=== PATIENT | female | born 1940 | race Caucasian/White ===

== ENCOUNTER 2022-06-12 19:16 | Emergency (ER) | payer MEDICARE, SELFPAY ==
[2022-06-12 19:33] VITALS: BP 156/65; PULSE 87; RESP 18; TEMP 36.8; O2SAT 96; BMI 36.1
[2022-06-12 19:38] VITALS: RESP 18; O2SAT 96
[2022-06-12 19:40] VITALS: BP 156/72
--- NOTE | 2022-06-12 19:56 | ED_ITS ---
HPI - General Adult General Chief complaint: Cough Stated complaint: Headache Body Pain Cough Time Seen by Provider: 06/12/22 19:31 History of Present Illness HPI narrative: 81-year-old woman presenting to the emergency department with complaint of headache and concerned it appears primarily of potential COVID infection. home covid test was negative. wants paxlovid if positive here today. Does have a history of hypertension rheumatoid arthritis. She woke this morning with a headache and has evolved a small dry cough. She is not having specifically chest pain nor shortness of breath. It does has some degree of achy all over which she would blame on underlying rheumatoid affected by what ever presumed illness she has now. Took some ibuprofen earlier today and to residual hydrocodone to get rid of the headache and it did not help. Does take methotrexate gabapentin hydrochlorothiazide tramadol She has not had any fever or rash. Scratchy throat. No diarrhea. She would like relief of this headache. Related Data Home Medications Medication Instructions Recorded Confirmed atorvastatin 40 mg tablet 40 mg PO DAILY 06/12/22 06/12/22 cholecalciferol (vitamin D3) 50 2,000 unit PO DAILY 06/12/22 06/12/22 mcg (2,000 unit) capsule (Vitamin D3) cyanocobalamin (vitamin B-12) 500 500 mcg PO DAILY 06/12/22 06/12/22 mcg tablet (Vitamin B-12) gabapentin 300 mg capsule 300 mg PO DIRECTED 06/12/22 06/12/22 hydroxychloroquine 200 mg tablet 200 mg PO BID 06/12/22 06/12/22 methotrexate sodium 25 mg/mL 25 mg subcut DIRECTED 06/12/22 06/12/22 injection solution sertraline 100 mg tablet 100 mg PO DAILY 06/12/22 06/12/22 tramadol 50 mg tablet 50 mg PO BID-TID PRN joint pain 06/12/22 06/12/22 Previous Rx's Medication Instructions Recorded nirmatrelvir 300 mg (150 mg See Rx Instructions PO .COMPLEX 06/12/22 x2)-ritonavir 100 mg tablet,dose #30 ea pack(EUA) (Paxlovid) Allergies Allergy/AdvReac Type Severity Reaction Status Date / Time albuterol Allergy Severe Anaphylaxis Verified 06/12/22 21:02 Review of Systems Status of ROS: Reports: 6 or more systems reviewed and unremarkable except as noted in History and below [facility] Medical History (Updated 06/12/22 @ 21:28 by Vineet Ivy MD) Anemia, iron deficiency Anxiety Bilateral lumbar radiculopathy Depression Epigastric pain GERD (gastroesophageal reflux disease) H. pylori infection Herpesviral vesicular dermatitis Hypercholesteremia Osteoporosis Rheumatoid arthritis Small bowel perforation Spinal stenosis Surgical History (Updated 06/12/22 @ 21:00 by Hood Elise RN) History of bilateral knee replacement History of blepharoplasty History of esophagogastroduodenoscopy (EGD) History of lumbar fusion History of Adrienne-en-Y gastric bypass History of shoulder surgery Intestinal bypass and anastomosis status S/P cataract extraction and insertion of intraocular lens Status post reverse total replacement of left shoulder Social History Smoking Status: Former smoker Do you use any of these nicotine containing products: None Second hand tobacco smoke exposure: No How often do you have a drink containing alcohol: never AUDIT-C Alcohol total score: 0 Non-prescribed substance use: denies use Exam Narrative: Exam Narrative: Pleasant. NAD. Mildly watering eyes left greater than right without conjunctival injection. Cranial nerves 2-12 intact. Well perfused moving all extremities without difficulty other than did not test her shoulder she has had bilateral shoulder surgery. Mild lower extremity dependent edema. Lungs are clear oropharynx faintly erythematous. Neck is supple without LA. heart is in a regular rate and rhythm. Const: Vital Signs, click to edit/add: Vital Signs - 24 hr 06/12/22 19:33 06/12/22 19:38 06/12/22 19:40 Temperature 98.2 F Pulse Rate [Right Pulse Oximeter] 87 Respiratory Rate 18 18 Blood Pressure [Ri ght Upper Arm] 156/65 H 156/72 H Pulse Oximetry 96 96 Oxygen Delivery Me thod Room Air Room Air 06/12/22 20:39 06/12/22 20:00 06/12/22 21:29 Temperature Pulse Rate [Right Pulse Oximeter] 78 79 Respiratory Rate 18 18 Blood Pressure [Ri ght Upper Arm] 173/84 H 175/70 H Pulse Oximetry 94 96 96 Oxygen Delivery Me thod Room Air Room Air Room Air Documenting provider has reviewed patient's vital signs: yes Course Vital Signs Vital signs: Initial Vital Signs Temperature 98.2 F 06/12/22 19:33 Temperature Source Temporal Artery Scan 06/12/22 19:33 Pulse Rate 87 06/12/22 19:33 Respiratory Rate 18 06/12/22 19:33 Blood Pressure 156/65 H 06/12/22 19:33 Blood Pressure Mean 95 06/12/22 19:33 Blood Pressure Position Sitting 06/12/22 19:33 Pulse Oximetry 96 06/12/22 19:33 Oxygen Delivery Method 06/12/22 19:33 Vital Signs Temperature 98.2 F 06/12/22 19:33 Pulse Rate 87 06/12/22 19:33 Respiratory Rate 18 06/12/22 19:33 Blood Pressure 156/65 H 06/12/22 19:33 Pulse Oximetry 96 06/12/22 19:33 Oxygen Delivery Method 06/12/22 19:33 Temperature 98.2 F 06/12/22 19:33 Pulse Rate 79 06/12/22 21:29 Respiratory Rate 18 06/12/22 21:29 Blood Pressure 175/70 H 06/12/22 21:29 Pulse Oximetry 96 06/12/22 21:29 Oxygen Delivery Method 06/12/22 21:29 Medical Decision Making MDM Narrative Medical decision making narrative: I did offer treatment for her headache. We discussed potential IV fluids and Toradol to start. Triple swab has been collected. I opted per my initial understanding from conversation to dispense a shot of ketorolac. Later though did inform nurse that she would like IV fluids also in treatment of this headache. initiated. on reassessment doesn't feel much improved. seated applying an ice pack to her head. vitals stable. covid is positive. discussed pain management expectations. nsaids recommended. has tramadol but might be better to avoid during paxlovid course. tolerates norco. reviewed medications for paxlovid interaction. see patient discharge plan Lab Data Lab results reviewed: Yes I reviewed the patient's lab results Labs: Lab Results 06/12/22 06/12/22 Range/Units 19:31 20:20 Creatinine 0.6 (0.5-1.5) mg/dL Estimated Creat Clear 32.77 Estimated GFR 91 ml/min SARS-CoV-2 (PCR) POSITIVE SARS-CoV-2 A (Negative) Influenza Type A (PCR) Negative PCR FLU A (Negative) Influenza Type B (PCR) Negative PCR FLU B (Negative) RSV (PCR) Negative PCR RSV (Negative) Discharge Plan Discharge Clinical Impression: COVID-19, Myalgia, Headache Patient Disposition: Home w/ Parent or Adult Condition: Stable Additional Instructions: Stay well-hydrated. Can take this [place] from [facility] if really needed. Unfortunately will have to start Paxlovid tomorrow. It has been sent to your pharmacy. Return for uncontrolled pain, increasing and persistent shortness of breath, intractable vomiting. If you are becoming more short of breath I would get an oxygen saturation monitor and at least return for emergency department for oxygen saturations of 90% or less. Regarding your current medications while taking Paxil of it, limit use of tramadol. Otherwise hold atorvastatin for 8 days. Prescriptions: New Paxlovid (EUA) 300 mg (150 mg x 2)-100 mg tablets,dose pack See Rx Instructions .ROUTE .COMPLEX Qty: 30 0RF Rx Instructions: take TWO 150 mg tablets of nirmatrelvir with ONE 100 mg tablet of ritonavir twice daily for 5 days No Action sertraline 100 mg tablet 100 mg PO DAILY methotrexate sodium 25 mg/mL solution 25 mg subcut DIRECTED Rx Instructions: every 7 days tramadol 50 mg tablet 50 mg PO BID-TID PRN (Reason: joint pain) atorvastatin 40 mg tablet 40 mg PO DAILY gabapentin 300 mg capsule 300 mg PO DIRECTED Label Comments: TAKE 1 CAPSULE BY MOUTH EVERY MORNING THEN TAKE 3 CAPSULES BY MOUTH EVERY NIGHT 2 HOURS BEFORE BEDTIME hydroxychloroquine 200 mg tablet 200 mg PO BID cyanocobalamin (vitamin B-12) [Vitamin B-12] 500 mcg tablet 500 mcg PO DAILY cholecalciferol (vitamin D3) [Vitamin D3] 50 mcg (2,000 unit) capsule 2,000 unit PO DAILY Follow Up/Referrals: Provider,Not a Local [Primary Care Provider] - Stand Alone Forms: [employer] Info Instructions
[2022-06-12 20:00] VITALS: BP 173/84; PULSE 78; RESP 18; O2SAT 96
[2022-06-12] MEDS: KETOROLAC 30 MG/ML inj IVP (20:06)
[2022-06-12 20:19] LABS: PCR FLU A Negative PCR FLU A (Negative); PCR FLU B Negative PCR FLU B (Negative); PCR RSV Negative PCR RSV (Negative)
[2022-06-12 20:31] LABS: SARS PCR* POSITIVE SARS-CoV-2 (Negative)
[2022-06-12] MEDS: 0.9 % SODIUM CHLORIDE 1000 ml 1,000 ML IV (20:31)
[2022-06-12 20:39] VITALS: O2SAT 94
[2022-06-12 20:50] LABS: Creatinine* 0.6 mg/dL (0.5-1.5); Est. Creatinine Clearance* 32.77; Estimated Glomerular Filt Rate 91 ml/min
[2022-06-12 21:29] VITALS: BP 175/70; PULSE 79; RESP 18; O2SAT 96
== END 2022-06-12 21:39 | disposition home or self-care (01) ==
PROVIDERS: Emergency Provider Family Medicine
DX: R51.9 Headache, unspecified (principal); U07.1 COVID-19
CPT/HCPCS: 36415; 82565; 87502; 87634; 87635; 96372; 96374; 99283; 99284; J1885; J7030

== ENCOUNTER 2024-08-13 12:55 | Emergency (ER) | payer MEDICARE, SELFPAY ==
[2024-08-13] VITALS (7 sets, daily range): BP systolic 166; BP diastolic 79; PULSE 57–76; RESP 16–18; TEMP 36.6; O2SAT 89–98; BMI 35.3
--- NOTE | 2024-08-13 13:11 | ED_ITS ---
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 She has had symptoms for about 2 days now. It is radiating into her back. She has had no nausea vomiting or diarrhea. She last had a good bowel movement 2 days ago, nothing since then. She is still passing flatus, notes increased burping. Overall her appetite is not the best, she does not make her own food any longer, it is provided for her. She has noted no fevers or chills. Her sleep was disrupted due to her discomfort last night. When she found a position of comfort, could sleep. She has had a Adrienne-en-Y gastric bypass before. She had a subsequent surgery where they revised in area of perforation that was thought to have ulcerated. She had her gallbladder out at the time of the gastric bypass. Her daughter whom is a nurse practitioner in her in Oncology at [employer] is with her. Patient has a history of lumbar surgery and is worried that it could be something wrong with that. She recently did have some prednisone for her back. MD elicited complaint: abdominal pain Related Data Home Medications ?Medication ?Instructions ?Recorded ?Confirmed atorvastatin 40 mg tablet 40 mg PO DAILY 06/12/22 08/13/24 cholecalciferol (vitamin D3) 50 2,000 unit PO DAILY 06/12/22 08/13/24 mcg (2,000 unit) capsule (Vitamin D3) cyanocobalamin (vitamin B-12) 500 500 mcg PO DAILY 06/12/22 08/13/24 mcg tablet (Vitamin B-12) gabapentin 300 mg capsule 300 mg PO DIRECTED 06/12/22 08/13/24 methotrexate sodium 25 mg/mL 25 mg subcut DIRECTED 06/12/22 08/13/24 injection solution sertraline 100 mg tablet 100 mg PO DAILY 06/12/22 08/13/24 tramadol 50 mg tablet 50 mg PO BID-TID PRN joint pain 06/12/22 08/13/24 prednisone 5 mg tablet mg PO 08/13/24 Allergies Allergy/AdvReac Type Severity Reaction Status Date / Time albuterol Allergy Severe Anaphylaxis Verified 08/13/24 13:03 Review of Systems Status of ROS Reports: 6 or more systems reviewed and unremarkable except as noted in History and below [facility] Medical History Osteoporosis ?M81.0 - Age-related osteoporosis without current pathological fracture (ICD- 10) Depression ?F32.A - Depression, unspecified (ICD-10) Spinal stenosis ?M48.00 - Spinal stenosis, site unspecified (ICD-10) H. pylori infection ?A04.8 - Other specified bacterial intestinal infections (ICD-10) GERD (gastroesophageal reflux disease) ?K21.9 - Gastro-esophageal reflux disease without esophagitis (ICD-10) Bilateral lumbar radiculopathy ?M54.16 - Radiculopathy, lumbar region (ICD-10) Anxiety ?F41.9 - Anxiety disorder, unspecified (ICD-10) Anemia, iron deficiency ?D50.9 - Iron deficiency anemia, unspecified (ICD-10) Small bowel perforation ?K63.1 - Perforation of intestine (nontraumatic) (ICD-10) Epigastric pain ?R10.13 - Epigastric pain (ICD-10) Herpesviral vesicular dermatitis ?B00.1 - Herpesviral vesicular dermatitis (ICD-10) Hypercholesteremia ?E78.00 - Pure hypercholesterolemia, unspecified (ICD-10) Rheumatoid arthritis ?M06.9 - Rheumatoid arthritis, unspecified (ICD-10) Surgical History History of shoulder surgery ?Z98.890 - Other specified postprocedural states (ICD-10) History of Adrienne-en-Y gastric bypass ?Z98.84 - Bariatric surgery status (ICD-10) History of lumbar fusion ?Z98.1 - Arthrodesis status (ICD-10) History of bilateral knee replacement ?Z96.653 - Presence of artificial knee joint, bilateral (ICD-10) History of esophagogastroduodenoscopy (EGD) ?Z98.890 - Other specified postprocedural states (ICD-10) S/P cataract extraction and insertion of intraocular lens ?Z98.49 - Cataract extraction status, unspecified eye (ICD-10) ?Z96.1 - Presence of intraocular lens (ICD-10) History of blepharoplasty ?Z98.890 - Other specified postprocedural states (ICD-10) Status post reverse total replacement of left shoulder ?Z96.612 - Presence of left artificial shoulder joint (ICD-10) Intestinal bypass and anastomosis status ?Z98.0 - Intestinal bypass and anastomosis status (ICD-10) Social History Smoking Status: Former smoker Do you use any of these nicotine containing products: None Second hand tobacco smoke exposure: No How often do you have a drink containing alcohol: never AUDIT-C Alcohol total score: 0 Non-prescribed substance use: denies use Exam Const: Vital Signs, click to edit/add: Vital Signs - 24 hr 08/13/24 13:07 08/13/24 13:55 08/13/24 14:00 Temperature 97.9 F Pulse Rate 69 57 L Pulse Rate [Pulse Oximeter] 76 Respiratory Rate 16 Blood Pressure [Ri ght Upper Arm] 166/79 H Pulse Oximetry 98 89 97 Oxygen Delivery Me thod Room Air 08/13/24 14:15 08/13/24 14:30 08/13/24 15:18 Temperature Pulse Rate 62 62 67 Pulse Rate [Pulse Oximeter] Respiratory Rate 16 18 Blood Pressure [Ri ght Upper Arm] Pulse Oximetry 97 94 94 Oxygen Delivery Me thod This 84-year-old female is alert, interactive, no apparent distress. She is seen in exam room 3, sitting up in the bed. Pupils equal round reactive, sclera clear, face atraumatic. Able speak in complete sentences, speech normal. Lungs are clear, good air entry, no wheeze or crackles. CV regular rate and rhythm, no murmur, normal S1-S2, no S3-S4. Abdomen is soft, mildly obese but no significant distension noted. Do hear bowel sounds that do not sound concerning. She has paraumbilical tenderness that goes into the right mid lower quadrant in just below the umbilicus but above the suprapubic area. She is quite tender when I palpate but no rebound or guarding. Do not feel any masses. Skin visualized without rash. Patient did ambulate in. Documenting provider has reviewed patient's vital signs: yes Course Course ED Course: This 84-year-old female should have abdominal imaging with CT. She and her daughter do agree. I do think at her age in with her history and current presenting symptoms, bowel pathology such as possible small-bowel obstruction could be an etiology here. She is worried about perforation again which certainly could be a consideration. CT imaging should help us. Will do a point of care creatinine so that we can facilitate getting the CT done. Will do full complement of labs. She would like something for pain, will try some IV fentanyl and give some IV Zofran to premedicate for nausea. Will do 250 mL normal saline over this 1st hour. Reevaluation(s) Time of Reevaluation #1: 15:28 Reevaluation #1: Have reviewed CT report and findings with them. Labs are reassuring, CT without acute surgical abdomen, did specifically discuss bone findings (no concerns). Reviewed that the IV pain medications can slow the bowel further. She would like to go home and work on this, can send with En[employer]. The do not want to work on constipation here. Did review return for worsening. Note patient did receive a dose of IV dilaudid as she stated the fentanyl did not help at all. Did review that further narcotic should be avoided. Vital Signs Vital signs: Initial Vital Signs Temperature 97.9 F 08/13/24 13:07 Temperature Source Temporal Artery Scan 08/13/24 13:07 Pulse Rate 76 08/13/24 13:07 Respiratory Rate 16 08/13/24 13:07 Blood Pressure 166/79 H 08/13/24 13:07 Blood Pressure Mean 108 H 08/13/24 13:07 Pulse Oximetry 98 08/13/24 13:07 Oxygen Delivery Method Room Air 08/13/24 13:07 Vital Signs Temperature 97.9 F 08/13/24 13:07 Pulse Rate 76 08/13/24 13:07 Respiratory Rate 16 08/13/24 13:07 Blood Pressure 166/79 H 08/13/24 13:07 Pulse Oximetry 98 08/13/24 13:07 Oxygen Delivery Method Room Air 08/13/24 13:07 Temperature 97.9 F 08/13/24 13:07 Pulse Rate 67 08/13/24 15:18 Respiratory Rate 18 08/13/24 15:18 Blood Pressure 166/79 H 08/13/24 13:07 Pulse Oximetry 94 08/13/24 15:18 Oxygen Delivery Method Room Air 08/13/24 13:07 Medications Administered Medications: Generic Name Dose Route Start Last Admin Trade Name Yuan PRN Reason Stop Dose Admin Fentanyl 25 mcg 08/13/24 13:22 08/13/24 13:43 Fentanyl 100 Mcg/2 Ml Inj IVP 25 mcg Q2H PRN Administration Discontinued Medications Generic Name Dose Route Start Last Admin Trade Name Yuan PRN Reason Stop Dose Admin Hydromorphone HCl 0.5 mg 08/13/24 15:15 08/13/24 15:19 Hydromorphone 0.5 Mg/0.5 Ml Inj IVP 08/13/24 15:16 0.5 mg ONCE ONE Administration Sodium Chloride 250 mls @ 250 mls/hr 08/13/24 13:22 08/13/24 14:25 0.9 % Sodium Chloride 250 Ml IV 08/13/24 14:21 Infused .Q1H ONE Infusion Ondansetron HCl 4 mg 08/13/24 13:22 08/13/24 13:43 Ondansetron 2 Mg/Ml Inj IVP 08/13/24 13:23 4 mg ONCE ONE Administration MDM - Abdominal Pain Lab Data Attestation: I reviewed the patient's lab results. Labs: Lab Results 08/13/24 08/13/24 08/13/24 Range/Units 13:23 13:45 14:10 WBC 6.92 (4.50-11.00) K/uL RBC 4.14 (4.00-5.20) m/uL Hgb 13.2 (12.0-16.0) gm/dL Hct 41.3 (33.0-51.0) % MCV 100 (80-100) fL MCH 32 (26-34) pg MCHC 32 (32-36) gm/dL RDW Coeff of Kathy 13.5 (11.5-15.5) % Plt Count 181 (140-440) K/uL Neut % (Auto) 84.2 H (42.0-72.0) % Lymph % (Auto) 10.3 L (20-44) % Bremer % (Auto) 4.6 (0.0-11.0) % Eos % (Auto) 0.7 (0.0-7.0) % Baso % (Auto) 0.1 (0.0-3.0) % Neut # (Auto) 5.80 (1.7-7.0) K/uL Lymph # (Auto) 0.70 L (0.90-2.90) K/uL Bremer # (Auto) 0.30 (0.00-0.90) K/UL Eos # (Auto) 0.05 (0.00-0.50) K/uL Baso # (Auto) 0.01 (0.00-0.30) K/uL Abs Immat Gran (auto) 0.01 (0.00-0.30) K/uL Imm/Tot Granulo (auto) 0.1 % Sodium 136 (135-149) mmol/L Potassium 5.0 (3.6-5.1) mmol/L Chloride 102 (96-114) mmol/L Carbon Dioxide 29 (20-32) mmol/L Anion Gap 5 L (7-15) mEq/L BUN 19 (7-30) mg/dL Creatinine 0.6 (0.5-1.5) mg/dL Estimated Creat Clear 31.15 Estimated GFR 90 ml/min Glucose 109 (60-115) mg/dL Lactate 1.4 (0.5-1.9) mmol/L Calcium 9.1 (8.4-10.6) mg/dL Total Bilirubin 1.0 (0.1-1.5) mg/dL Direct Bilirubin 0.2 (0.0-0.5) mg/dL AST 33 (12-35) U/L ALT 23 (4-35) U/L Alkaline Phosphatase 69 (40-150) U/L C-Reactive Protein 0.7 (0.5-1.0) mg/dL Total Protein 6.9 (6.0-8.3) g/dL Albumin 4.3 (3.3-5.0) g/dL Lipase 343 H (23-300) U/L Urine Color Yellow (Yellow) Urine Appearance Clear (Clear) Urine pH 7.0 (5.0-8.5) Ur Specific [place] 1.010 (1.000-1.030) Urine Protein Negative (Negative) Urine Glucose (UA) Negative (Negative) Urine Ketones Negative (Negative) Urine Blood Trace-intact A (Negative) Urine Nitrite Negative (Negative) Urine Bilirubin Negative (Negative) Urine Urobilinogen 0.2 (0.2-1.0) Ur Leukocyte Esterase Negative (Negative) Urine RBC 0-2 (0-2) Urine WBC 0-2 (0-5) Ur Squamous Epith Cells Few (None-Few) Urine Bacteria None (None) POC Creatinine 0.7 (0.6-1.3) mg/dl Imaging Data CT scan - abdomen: Attestation: I have reviewed the pertinent imaging results. Radiologist's impression: Patient: ROSALIND CARDOSO Facility:?[facility] Patient ID:?[id number] Site Patient ID:?[id number]. Site :?[id number] Study:?CT-Abdomen/Pelvis W/ 89CC ISOVUE 370-08/13/2024 3:10:03 PM Ordering Physician:?Vira Ferreira Final Report: INDICATION: Periumbilical pain radiating to the back. COMPARISON: None. TECHNIQUE: CT of the abdomen and pelvis with intravenous contrast. Multiplanar axial, coronal, and sagittal reformats were reconstructed. Contrast: 89 mL Isovue 370. FINDINGS: Lung bases: Mild peripheral basilar reticulation. Calcified granuloma. Liver: Normal homogeneous hepatic enhancement. Gallbladder and bile ducts: Cholecystectomy. Moderate intrahepatic biliary ductal dilatation extending almost all the way to the periphery of the liver. The extrahepatic bile duct is dilated and measures 2 centimeters near the job hepatis and 1.4 centimeters distally. Tapers down towards the ampulla. No bile duct dilation. Pancreas: Normal pancreatic parenchyma. The pancreatic duct is not dilated. Spleen: Normal spleen size and enhancement. Adrenal glands: Normal. Kidneys: Normal renal size and position. There is a 0.7 centimeter medial right renal lesion that is consistent with a small cyst. Low-density lesion in the left upper pole measuring about 7 millimeters is too small to definitively characterize. No calculi. No urinary tract dilation. Urinary bladder: Normal. Pelvis: No cyst or mass. Vessels: Atherosclerosis. No aortic aneurysm. Patent mesenteric arteries and veins. Bowel: Postsurgical change at the stomach and proximal small bowel. Favor a gastric bypass. No dilated or inflamed small bowel or colon. Normal appendix. Moderate to large stool burden. Lymph nodes: No adenopathy. Peritoneum: No ascites or free air. Abdominal wall: No hernia. Bones: Lower lumbar laminectomy. Lumbosacral spinal fusion hardware with pedicle screws and paired vertical rods. Bone graft harvest site in the right iliac wing. Pelvic enthesitis. Disc and facet degeneration. L5 superior endplate compression fracture. No acute appearing fractures.. No focal worrisome bone lesions. IMPRESSION: 1. Biliary ductal dilatation is nonspecific but could be related to reservoir effect after cholecystectomy. In an asymptomatic patient, no specific further imaging is warranted. If there are symptoms of biliary obstruction, then consider MRCP. 2. Postop bowel, favor gastric bypass. No obstruction. Moderate to large stool burden. 3. Heavy atherosclerosis. No acute or chronic mesenteric ischemia. Please note that all CT scans at this facility use dose modulation, iterative reconstruction, and/or weight-based dosing when appropriate to reduce radiation dose to as low as reasonably achievable. Dictated by Jennifer Burns MD @ 08/13/2024 3:24:24 PM (Electronic Signature) Discharge Plan Discharge Clinical Impression: Abdominal pain Qualifiers: Abdominal location: periumbilical Qualified Code(s): R10.33 - Periumbilical pain Constipation Qualifiers: Constipation type: unspecified constipation type Qualified Code(s): K59.00 - Constipation, unspecified Patient Disposition: Home, Self-Care Condition: Stable Instructions: Constipation (ED), High Fiber Diet (ED), Abdominal Pain (ED) Additional Instructions: Use [employer] at home, try to retain in rectal vault as instructed by nursing. Do recommend MiraLax 17 g daily, drink adequate fluids and try to increase natural fiber in your diet. Review handouts. If you develop diarrhea on the MiraLax, can back off the dosing, cut dose in half. If the MiraLax is not enough, can use 2 pills of senna once to twice a day for 1 day to see if this helps. If you develop increasing abdominal pain, have fever or vomiting develop, do recommend re-evaluation. Activity Level: Activity as Tolerated Prescriptions: No Action sertraline 100 mg tablet 100 mg PO DAILY methotrexate sodium 25 mg/mL solution 25 mg subcut DIRECTED Rx Instructions: every 7 days tramadol 50 mg tablet 50 mg PO BID-TID PRN (Reason: joint pain) atorvastatin 40 mg tablet 40 mg PO DAILY gabapentin 300 mg capsule 300 mg PO DIRECTED Patient Comments: TAKE 1 CAPSULE BY MOUTH EVERY MORNING THEN TAKE 3 CAPSULES BY MOUTH EVERY NIGHT 2 HOURS BEFORE BEDTIME cyanocobalamin (vitamin B-12) [Vitamin B-12] 500 mcg tablet 500 mcg PO DAILY cholecalciferol (vitamin D3) [Vitamin D3] 50 mcg (2,000 unit) capsule 2,000 unit PO DAILY prednisone 5 mg tablet PO Follow Up/Referrals: Provider,Not a Local [Non-Staff] - Stand Alone Forms: [facility] Info Instructions
--- NOTE | 2024-08-13 13:22 | CRLHL7_ITS ---
For Patients: As a result of the 21st Century Cures Act, medical imaging exams and procedure reports are released immediately into your electronic medical record. You may view this report before your referring provider. If you have questions, please contact your health care provider. INDICATION: Periumbilical pain radiating to the back. COMPARISON: None. TECHNIQUE: CT of the abdomen and pelvis with intravenous contrast. Multiplanar axial, coronal, and sagittal reformats were reconstructed. Contrast: 89 mL Isovue 370. FINDINGS: Lung bases: Mild peripheral basilar reticulation. Calcified granuloma. Liver: Normal homogeneous hepatic enhancement. Gallbladder and bile ducts: Cholecystectomy. Moderate intrahepatic biliary ductal dilatation extending almost all the way to the periphery of the liver. The extrahepatic bile duct is dilated and measures 2 centimeters near the job hepatis and 1.4 centimeters distally. Tapers down towards the ampulla. No bile duct dilation. Pancreas: Normal pancreatic parenchyma. The pancreatic duct is not dilated. Spleen: Normal spleen size and enhancement. Adrenal glands: Normal. Kidneys: Normal renal size and position. There is a 0.7 centimeter medial right renal lesion that is consistent with a small cyst. Low-density lesion in the left upper pole measuring about 7 millimeters is too small to definitively characterize. No calculi. No urinary tract dilation. Urinary bladder: Normal. Pelvis: No cyst or mass. Vessels: Atherosclerosis. No aortic aneurysm. Patent mesenteric arteries and veins. Bowel: Postsurgical change at the stomach and proximal small bowel. Favor a gastric bypass. No dilated or inflamed small bowel or colon. Normal appendix. Moderate to large stool burden. Lymph nodes: No adenopathy. Peritoneum: No ascites or free air. Abdominal wall: No hernia. Bones: Lower lumbar laminectomy. Lumbosacral spinal fusion hardware with pedicle screws and paired vertical rods. Bone graft harvest site in the right iliac wing. Pelvic enthesitis. Disc and facet degeneration. L5 superior endplate compression fracture. No acute appearing fractures.. No focal worrisome bone lesions. IMPRESSION: 1. Biliary ductal dilatation is nonspecific but could be related to reservoir effect after cholecystectomy. In an asymptomatic patient, no specific further imaging is warranted. If there are symptoms of biliary obstruction, then consider MRCP. 2. Postop bowel, favor gastric bypass. No obstruction. Moderate to large stool burden. 3. Heavy atherosclerosis. No acute or chronic mesenteric ischemia. Please note that all CT scans at this facility use dose modulation, iterative reconstruction, and/or weight-based dosing when appropriate to reduce radiation dose to as low as reasonably achievable. Dictated by Jennifer Burns MD @ 08/13/2024 3:24:24 PM (Electronically Signed)
[2024-08-13] MEDS: fentaNYL 100 MCG/2 ML inj 25 MCG IVP (13:43)
[2024-08-13] MEDS: 0.9 % SODIUM CHLORIDE 250 ml 250 ML IV (13:43)
[2024-08-13] MEDS: ONDANSETRON 2 MG/ML inj 4 MG IVP (13:43)
[2024-08-13 13:58] LABS: Lactate* 1.4 mmol/L (0.5-1.9)
[2024-08-13 14:02] LABS: Basophils Absolute Auto 0.01 K/uL (0.00-0.30); Basophils Percent Auto 0.1 % (0.0-3.0); Eosinophils Absolute Auto 0.05 K/uL (0.00-0.50); Eosinophils Percent Auto 0.7 % (0.0-7.0); Hematocrit 41.3 % (33.0-51.0); Hemoglobin* 13.2 gm/dL (12.0-16.0); Immature Granulocytes Abs Auto 0.01 K/uL (0.00-0.30); Immature Granulocytes Pct Auto 0.1 %; Lymphocytes Percent Auto 10.3 % (20-44); Mean Corpuscular HGB Conc 32 gm/dL (32-36); Mean Corpuscular Hemoglobin 32 pg (26-34); Mean Corpuscular Volume 100 fL (80-100); Monocytes Percent Auto 4.6 % (0.0-11.0); Neutrophils Percent Auto 84.2 % (42.0-72.0); Platelet Count* 181 K/uL (140-440); RDW Coefficient of Variation % 13.5 % (11.5-15.5); Red Blood Count 4.14 m/uL (4.00-5.20); White Blood Count* 6.92 K/uL (4.50-11.00)
[2024-08-13 14:10] LABS: Slide Review Reflex No
[2024-08-13 14:15] LABS: Albumin* 4.3 g/dL (3.3-5.0); Chloride* 102 mmol/L (96-114); Sodium* 136 mmol/L (135-149)
[2024-08-13 14:18] LABS: Alanine Aminotransferase* 23 U/L (4-35); Anion Gap 5 mEq/L (7-15); Aspartate Amino Transferase* 33 U/L (12-35); Bilirubin Direct* 0.2 mg/dL (0.0-0.5); Blood Urea Nitrogen* 19 mg/dL (7-30); Carbon Dioxide* 29 mmol/L (20-32); Creatinine* 0.6 mg/dL (0.5-1.5); Est. Creatinine Clearance* 31.15; Estimated Glomerular Filt Rate 90 ml/min
[2024-08-13 14:19] LABS: Alkaline Phosphatase* 69 U/L (40-150); Calcium* 9.1 mg/dL (8.4-10.6); Glucose* 109 mg/dL (60-115); Lipase* 343 U/L (23-300); Total Protein* 6.9 g/dL (6.0-8.3)
[2024-08-13 14:21] LABS: C Reactive Protein* 0.7 mg/dL (0.5-1.0)
[2024-08-13 14:22] LABS: Creatinine, Point-of-Care* 0.7 mg/dl (0.6-1.3)
[2024-08-13 14:25] LABS: Appearance Urine Clear (Clear); Bilirubin Urine Negative (Negative); Blood Urine Trace-intact (Negative); Color Urine Yellow (Yellow); Glucose Urine Negative (Negative); Ketones Urine Negative (Negative); Leukocyte Esterase Urine Negative (Negative); Nitrite Urine Negative (Negative); Protein Urine Negative (Negative); Urobilinogen Urine 0.2 (0.2-1.0)
[2024-08-13 14:50] LABS: RBC Urine 0-2 (0-2); Squamous Epithelial Cell Urine Few (None-Few); WBC Urine 0-2 (0-5)
[2024-08-13] MEDS: HYDROmorphone 0.5 mg/0.5 ml inj IVP (15:19)
[2024-08-13] MEDS: DOCUSATE SODIUM/BENZOCAINE 5 ML ENEMA PR (15:54)
--- OUTSIDE RECORDS SUMMARY | 2024-08-15 16:49 | XMS_ITS | Encounter Summary ---
Author Organization [facility] Address [address] [place] [address]. [place] [address] Care Team Providers Care Shop Supervisor Name Role Phone Cynthia Carrasco MD Primary Care Provider Un available Cynthia Carrasco MD Unavailable [facility] Unavailable Cynthia Carrasco MD Unavailable [facility] Ora Roldan DO Primary Care Provider [phone] Imer Hernandez MD Unavailable [phone] Encounter Details Date Type Department Care Team (Late st Contact Info) Description 04/08/[address] [address] Cynthia Carrasco MD Social History Tobacco Use Types Packs/Day Years Used Date Smoking Tobacco: Former Smokeless Tobacco: Never Alcohol Use Standard Drinks/Week Comments No 0 (1 standard drink = 0.6 oz pur e alcohol) PHQ-2 Answer Date Recorded PHQ-2 Score 2 04/10/2018 Adolescent Education Answer Date Record ed Getting School Help Needed Not on file 12/23 Comments No Sex and Gender Information Value Date Recorded Sex Assigned at Not on file Legal Sex Female 3:21 AM 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 No / Unsure 12/06/2021 3:19 PM CDT documented as of this encounter Miscellaneous Notes * Telephone Encounter - Gertrude Payne - 04/08/2017 4:18 PM CST Panel Management Review Patient has the following on her problem list: None Composite cancer screening Chart review shows that this patient is due/due soon for the following Mammogram Summary: Patient is due/failing the following: MAMMOGRAM Action needed: Patient needs office visit for mammogram. Type of outreach: Phone, left message for patient to call back. Questions for provider review: None Gertrude Payne (RT)R Chart routed to . NDER RUNNER documented in this encounter Plan of Treatment Not on file documented as of this encounter Visit Diagnoses Not on filedocumented in this encounter Additional Health Concerns Assessment Noted Time PHQ-9 Depression Total Score: 5 02/27/20 17 10:57 AM CALENDER RUNNER documented as of this encounter Care Teams Shop Supervisor Relationship Specialty Start Date End Date Cynthia Carrasco MD PCP - General Internal Medicine 05/22/16 11/09/19 Cynthia Carrasco MD PCP - Assigned PCP 06/02/16 06/02/18 Ora Roldan DO PCP - General Family Practice 11/10/19 [facility] ([facility] ([place]) 05/08/18 06/07/18 Cynthia Carrasco MD Assigned PCP 06/02/16 06/09/21 Imer Hernandez MD [id number] [id number] Assigned Heart and Vascular Provider 02/13/20 08/04/21 documented as of this encounter
--- OUTSIDE RECORDS SUMMARY | 2024-08-15 16:49 | XMS_ITS | Clinical Summary ---
Author Organization [facility] Address [address] [place] [address] Care Team Providers Care Software Quality Specialist Name Role Phone Kaylee Brown MD Unavailable [phone] Billy Garibay MD Primary Care Provider [phone] Allergies Active Allergy Reactions Criticality Noted Date Comments Albuterol Anaphylaxis High 04/19/2003 Medications acetaminophen (TYLENOL EXTRA STRGTH) 500 mg tablet Take 1,000 mg by mouth every 8 hours if needed. Active amoxicillin (AMOXIL) 500 mg capsule Take 2,000 mg by mouth. Dental procedures Active cyanocobalamin, vitamin B-12, [address] 500 mcg under the tongue once daily. Active diclofenac topical (VOLTAREN) 1 % gel ALBERTO 4 GRAMS EXT AA QID 019 Active traMADol (ULTRAM) 50 mg tablet TK ONE TO TWO TS PO Q 6-8 HOURS PRN P 019 Active OCUVITE PRESERVISION [id number] rdwc-hd-ozik tablet TAKE 1 TAB BY MOUTH TWICE A DAY 019 Active multivitamin pediatric chewable (FLINTSTONE'S) tablet Chew 1 Tablet by mouth once daily. 0 021 Active fluorouracil 5% topical (EFUDEX) 5 % cream fluorouracil 5 % topical cream TOPICALLY APPLY TO ARMS OVERNIGHT ONCE WEEKLY Active zoledronic acid/mannitol-wa ter (RECLAST IV) 018 Active methotrexate (FOLEX; MEXATE) 25 mg/mL injection 022 Active folic acid 1 mg tablet Take 2 mg by mouth once daily. 022 Active valACYclovir (VALTREX) 500 mg tabletIndication s:Herpesviral vesicular dermatitis TAKE 2 TABLETS(1000 MG) BY MOUTH IN THE MORNING AND IN THE EVENING 30 Tablet 1 023 Active estradioL (ESTRACE) 0.01% (0.1 mg/g) vaginal creamIndications :Atrophic vaginitis Insert 1 g into the vagina every Friday, Friday and Friday. 42.5 g 4 023 Active gabapentin (NEURONTIN) 300 mg capsule Take 1 Capsule (300 mg) by mouth three times daily. 024 Active ferrous sulfate 325 mg delayed release tabletIndication s:Iron deficiency anemia, unspecified iron deficiency anemia type Take 1 Tablet (325 mg) by mouth at bedtime. 90 Tablet 4 024 Active triamcinolone (ARISTOCORT; KENALOG) 0.1 % creamIndications :Dyshidrotic eczema Apply topically to affected area(s) three times daily. 45 g 024 Active ipratropium (ATROVENT NASAL) 21 mcg (0.03 %) nasal sprayIndications :Chronic rhinitis Inhale 2 Sprays into affected nostril(s) three times daily. [place] dose in each nostril. 30 mL 2 024 Active sertraline (ZOLOFT) 50 mg tabletIndication s:Depression, recurrent,Anxiet y Take 1.5 Tablets (75 mg) by mouth once daily in the morning. 135 Tablet 3 024 Active pantoprazole (PROTONIX) 40 mg delayed-release tabletIndication s:Iron deficiency anemia, unspecified iron deficiency anemia type TAKE ONE TABLET BY MOUTH EVERY DAY BEFORE A MEAL 90 Tablet 2 024 Active atorvastatin 20 mg tabletIndication s:Coronary artery calcification seen on CAT scan TAKE ONE TABLET BY MOUTH AT BEDTIME 90 Tablet 025 Active atorvastatin (LIPITOR) 20 mg tabletIndication s:Coronary artery calcification seen on CAT scan Take 1 Tablet (20 mg) by mouth at bedtime. 90 Tablet 4 024 2024 Discontinued Active Problems Problem Noted Date Diagnosed Date Class 1 obesity with body ma ss index (BMI) of 32.0 to 32.9 in adult 08/18/2023 Coronary artery calcification seen on CAT scan 0 08/18/2023 RLS (restless legs syndrome) 08/18/2023 Anxiety 08/08/2022 Anemia of chronic disease 08/08/2022 Thyroid nodule 08/08/2022 Overview (12/16/2022): Plan to recheck ultrasound in 1 year. Hyperlipidemia LDL goal <130 08/08/2022 S/P gastric bypass 08/08/2022 Osteoporosis 06/01/2021 Depression, recurrent 05/18/2021 Varicose veins 12/12/2018 Immunocompromised patient 04/16/2018 Gastroesophageal reflux disease 05/15/2015 H. 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 Morbid obesity 02/21/2017 06/01/2021 Shoulder joint replacement status 10/22/2012 08/08/2022 Anxiety state 01/22/2007 08/08/2022 Overview (06/08/2020): Problem list name updated by automated process. Provider to review Other symptoms referable to back 07/13/2002 06/01/2021 Early satiety 08/08/2022 Epigastric pain 08/08/2022 Small bowel perforation 07/29 Encounters Date Type Department Care Team Description 2024 Nurse Triage [facility] [id number] [place] [id number] Billy Garibay MD Abdominal Pain; Back Pain/problem (Thoracic back pain) 08/10/2024 [id number] [place] [address] Billy Garibay MD Refill Request (Atorvastatin) from Last 3 Months Immunizations Immunization Administration Dates Next Due COVID-19 vaccine (Moderna 50 mcg/0.5mL) 12YO+ BIVALENT PF, MDV 08/08/2022 COVID-19 vaccine (Pfizer-Bio NTech 30mcg/0.3mL) PF, MDV 04/28/2021,06/08/2020,05/09/2020 Influenza A (H1N1), Inactivated 01/06/2015 Influenza Virus, Unspecified 12/03/2013, 12/18/2012,02/27/2012,12/13,02/15/2008 Influenza, High-dose Inactivated 019,12/17/2017,11/24/2016,02/10,02/27/2012 Influenza, IIV3 (Age 6-35 mos) 12/13/2009 Influenza, IIV3 (Age >=3 years) 12/12/2010,04/01 Influenza, Inactivated AIIV4 (Age 65+ Years) Preserv Free 12/14/2022,01/11/2022,12/12/2020,12/19 Pneumococcal Conj 20-valent (Prevnar 20) 08/08/2022 Pneumococcal Poly,23-Valent (Pneumovax) 02/16/2008 Pneumococcal conj 13-Valent (Prevnar 13) 05/22/2016 RSV, Bivalent Vaccine Recons tituted (Abrysvo 120MCG/0.5mL) 12/14/2022 Rabavert 05/05/2007, 8,04/14/2007,04/10 Rabies Vaccine 05/05/2007, 8,04/14/2007,04/10 Td, Preservative Free (age >= 7 Years) 9,08/19/2006,04/14/1991 Tdap 12/18/2012 Zoster (Shingrix-RZV, recombinant) 09/13/2021, Zoster (Zostavax-ZVL, live) 01/05/2013 Family History Medical History Relation Name Comments Coronary artery disease Father Heart attack Father Arthritis Mother Cancer Sister Cancer-pancreatic Sister Anesthesia Problem No Family History Blood Disease No Family History Cancer-breast No Family History Cancer-ovarian No Family History Clotting disorder No Family History Relation Name Status Comments Father Mother Sister Social History Tobacco Use Types Packs/Day Years Used Date Smoking Tobacco: Former Cigarettes 0.5 10 0 05/29/1974 - 05/29/1984 Smokeless Tobacco: Never Tobacco Cessation:Counseling Given: Not Answered Comments:quit date 30 years ago Alcohol Use Standard Drinks/Week Comments Not Currently 0 (1 standard drink = 0.6 oz pur e alcohol) PHQ-2 Answer Date Recorded PHQ-2 TOTAL SCORE 0 08/18/2023 Social Connections Answer Date Recorded Do you often feel lonely or isolated from those around you? 0 02/24/2023 Financial Resource Strain Answer Date R ecorded Difficulty of Paying Living Expenses 3 02/24/2023 Difficulty of Paying Living Expenses Not on file 02/24/2023 Food Insecurity Answer Date Recorded Do you worry your food will run out before you are able to buy more? 1 02/24/2023 Transportation Needs Answer Date Record ed Does lack of transportation keep you from medica l appointments? 1 02/24/2023 Does lack of transportation keep you from work, meetings or getting things that you need? 1 02/24/2023 Housing Stability Answer Date Recorded What is your housing situation today? 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 Not on file Not on file Obstetrics History Last Filed Vital Signs Vital Sign Reading Time Taken Comments Blood Pressure 130/60 12/08/2023 11:45 AM CDT Pulse 66 12/08/2023 11:45 AM CDT Temperature 36.6 C (97.8 F) 12/04/2023 4:35 PM CDT Respiratory Rate 20 12/04/2023 4:35 PM CDT Oxygen Saturation 96% 12/04/2023 4:35 PM CDT Inhaled Oxygen Concentration - - Weight 73.9 kg (163 lb) 12/08/2023 11:45 AM CDT Height 155.5 cm (5' 1.22) 12/08/2023 11:45 AM C DT Body Mass Index 30.58 12/08/2023 11:45 AM CDT Plan of Treatment Health Maintenance Due Date Last Done Comments COVID-19 vaccine series ( season) 2023 12/31/2022, 08/08/2022, 12/25/2021, Additional history exists Depression screening for age 12+ 08/17/2024 08/18/19 24 Medicare Wellness for age 65+ 08/18/2024, 08/08/2022, 06/01/2021, Additional history exists Influenza Vaccine (Season Ended) 2024 12/14/2022, 01/11/2022, 12/12/2020, Additional history exists BMI (ht and wt on same day) for age 18+ 12/07/2024 12/08/2023, 08/18/2023, 02/24/2023, Additional history exists Tetanus booster 08/22/2028 08/22/2018, 11/30, 08/19/2006, Additional history exists Tdap Completed 12/18/2012 Zoster (shingles) series for age 50+ Completed 09/13/2021, 08/09/2021, 01/05/2013 Pneumococcal series for age 50+ Completed 08/08/2022, 05/22/2016, 02/16/2008 DEXA/DXA scan for age 65+ Completed 08/16/2022 RSV vaccine for adults or Completed 12/14/2022 Procedures Procedure Name Priority Date/Time Associated Diagnosis Comments XR DXA BONE DENSITY 2 SITES AXIAL Routine 08/16/2022 11:24 AM CDT Osteoporosis, unspecified osteoporosis type, unspecified pathological fracture presence from Last 3 Months or Most Recently Relevant to Health Maintenance Results * XR DXA BONE DENSITY 2 SITES AXIAL (08/16/2022 11:24 AM CDT) Anatomical Region Laterality Modality Spine, HIPS, HIPL, HIPR Computed Radiography 08/16/2022 11:2 4 AM CDT Impressions 08/22/2022 7:34 AM CDT Low bone density (OSTEOPENIA). T score meets the WHO criteria for low bone density (osteopenia) at one or more measured sites. The risk of osteoporotic fracture increases approximately two-fold for each standard deviation decrease in T-score. Narrative 08/22/2022 7:34 AM CDT For Patients: As a result of the Cures Act, medical imaging exams and procedure reports are released immediately into your electronic medical record. You may view this report before your referring provider. If you have questions, please contact your health care provider. EXAM: XR DXA BONE DENSITY 2 SITES AXIAL LOCATION: [facility] DATE/TIME: 08/16/2022 11:24 AM CDT INDICATION: Postmenopausal. DEMOGRAPHICS: Age- 82 years. Gender- Female. Postmenopausal. COMPARISON: None. TECHNIQUE: Dual-energy x-ray absorptiometry (DXA) performed with routine technique. FINDINGS: DXA RESULTS -RIGHT Hip Total: BMD: 0.869 g/cm2. T-score: -1.1. Z-score: 0.3. -RIGHT Hip Femoral neck: BMD: 0.772 g/cm2. T-score: -1.9. Z-score: -0.3. -LEFT Hip Total: BMD: 0.822 g/cm2. T-score: -1.5. Z-score: -0.1. -LEFT Hip Femoral neck: BMD: 0.770 g/cm2. T-score: -1.9. Z-score: -0.3. WHO T-SCORE CRITERIA -Normal: T score at or above -1 SD -Osteopenia: T score between -1 and -2.5 SD -Osteoporosis: T score at or below -2.5 SD The World Health Organization (WHO) criteria is applicable to perimenopausal females, postmenopausal females, and men aged 50 years or older. FRACTURE RISK -FRAX Results: The 10 year probability of major osteoporotic fracture is 20.4%, and of hip fracture is 5.0%, based on the left femoral neck BMD. RECOMMENDATIONS Consider treatment if major osteoporotic fracture score is greater than or equal to 20%, and if the hip fracture score is greater than or equal to 3%. Procedure Note Sheri Meng MD - 08/22/2022 For Patients: As a result of the Cures Act, medical imagingexams and procedure reports are released immediately into your electronicmedical record. You may view this report before your referring provider.If you have questions, please contact your health care provider. EXAM: XR DXA BONE DENSITY 2 SITES AXIAL LOCATION: [facility] DATE/TIME: 08/16/2022 11:24 AM CDT INDICATION: Postmenopausal. DEMOGRAPHICS: Age- 82 years. Gender- Female. Postmenopausal. COMPARISON: None. TECHNIQUE: Dual-energy x-ray absorptiometry (DXA) performed with routinetechnique. FINDINGS: DXA RESULTS -RIGHT Hip Total: BMD: 0.869 g/cm2. T-score: -1.1. Z-score: 0.3. -RIGHT Hip Femoral neck: BMD: 0.772 g/cm2. T-score: -1.9. Z-score: -0.3. -LEFT Hip Total: BMD: 0.822 g/cm2. T-score: -1.5. Z-score: -0.1. -LEFT Hip Femoral neck: BMD: 0.770 g/cm2. T-score: -1.9. Z-score: -0.3. WHO T-SCORE CRITERIA -Normal: T score at or above -1 SD -Osteopenia: T score between -1 and -2.5 SD -Osteoporosis: T score at or below -2.5 SD The World Health Organization (WHO) criteria is applicable toperimenopausal females, postmenopausal females, and men aged 50 years orolder. FRACTURE RISK -FRAX Results: The 10 year probability of major osteoporotic fracture is20.4%, and of hip fracture is 5.0%, based on the left femoral neck BMD. RECOMMENDATIONS Consider treatment if major osteoporotic fracture score is greater than orequal to 20%, and if the hip fracture score is greater than or equal to3%. IMPRESSION: Low bone density (OSTEOPENIA). T score meets the WHO criteria for low bonedensity (osteopenia) at one or more measured sites. The risk ofosteoporotic fracture increases approximately two-fold for each standarddeviation decrease in T-score. 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 Healthcare Directive 11/09/2019 020 * Full Code (Latest Code Status on File) Date Activated Date Inactivated Comments 06/01/2020 7:10 PM 06/05/2020 8:12 PM Question Answer Comments Code Status Discussion: Discussed * Full Code Date Activated Date Inactivated Comments 06/01/2020 10:45 AM 06/01/2020 2:24 PM Question Answer Comments Code Status Discussion: Discussed Care Teams Software Quality Specialist Relationship Specialty [place] [id number] [id number] PCP - General Family Practice 02/24/23 Kaylee Brown MD [address] [facility] [address] [address] Rheumatology 06/01/21
--- OUTSIDE RECORDS SUMMARY | 2024-08-15 16:49 | XMS_ITS | Encounter Summary ---
Author Organization [place] Address [address] [place] [address]. [place] [address] Care Team Providers Care Promotions Executive Producer Name Role Phone Gary Kendrick MD Primary Care Provider [phone] Cynthia Carrasco MD Primary Care Provider Un available Cynthia Carrasco MD Unavailable Unavaila ble [facility] Unavailable Cynthia Carrasco MD Unavailable Unavaila ble Ora Roldan DO Primary Care Provider Imer Hernandez MD Unavailable + [phone] Encounter Details Date Type Department Care Team (Late st Contact Info) Description 04/01/2003 [facility] [place] [address] [facility] [place] [address] Cielo Romero MD [address] [facility] [place] [address] HP, CONSULT (Primary Dx) Social History Tobacco Use Types Packs/Day Years Used Date Smoking Tobacco: Former Smokeless Tobacco: Never Comments:quit Alcohol Use Standard Drinks/Week Comments No 0 (1 standard drink = 0.6 oz pur e alcohol) Comments No Sex and Gender Information Value Date Recorded Sex Assigned at Not on file 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 Community-acquired pneumonia. 2. Obstructive airway dise ase. 3. Hypertension. HISTORY OF THE PRESENT ILLNESS: This 62-year-old female who is primarily see n by Dr. Gary Kendrick at [facility] presented to [facility] urgent care this evening with a chief complaint of cough and fever. The patient reports that over the last three days she has developed respiratory symptoms that originated as a sore throat and then evolved to cristobal vivek be characterized by a dry hacking cough. She denies any sputum production. On the day of her visit to urgent care, she began having significant wheezing and shortness of breath. She does admit to some pleuritic chest pain when she coughs, but otherwise denies any angina. She has been having subjective fevers and sweats. She has generalized myalgias and fatigue. In the [facility] she was noted to have some low oxygen saturation with saturations that ranged between 70 perc ent and 95 percent on room air by report of the urgent care physician. She was given albuterol nebul izations there which were hot helpful in relieving her hypoxemia. A chest x-ray was performed which was read as showing bilateral infiltrates, and the decision was made to admit the patient. REVIEW OF SYSTEMS: 1. Constitutional: Fevers and sweats as above. Generalized fatigue. 2. HEENT: Bilateral e ar fullness and aching, otherwise as above. 3. Cardiovascular: No palpitations, angina, peripheral s welling, orthopnea. 4. Respiratory: As above. 5. Gastrointestinal: No abdominal pain, nausea, vomit ing, diarrhea. 6. Genitourinary: Chronic urge incontinence, otherwise negative. 7. Endocrine: No po lyuria, polydipsia. 8. Dermatologic: No rashes or lesions. 9. Musculoskeletal: Chronic arthralgias with acute generalized myalgias. 10. Neurologic: No alterations in level of consciousness, convulsiv e movements, or loss of motor or sensory function. PAST MEDICAL HISTORY: [facility] the followin. Hypertension. 2. Chronic low back pain which the patient sta cheryl has been diagnosed as fibromyalgia. 3. Urge incontinence. 4. Plantar fasciitis. IMMUNIZATIONS: The patient did receive a flu vaccine this year. PAST SURGICAL HISTORY: Rotator cuff repair on eloy th shoulders, as well as knee arthroscopy. CURRENT MEDICATIONS: 1. Ditropan 10 mg p.o. q.d. 2. Angel Luis cium carbonate. 3. Aspirin 81 mg p.o. q.d. 4. Glucosamine chondroitin 500 mg p.o. b.i.d. 5. Bextra 20 mg p.o. q.d. 6. Diovan HCT 160/12.5 one tablet p.o. q.d. 7. Paxil 20 mg p.o. q.d. SOCIAL HISTO RY: The patient is a nonsmoker. She consumes alcohol only rarely. PHYSICAL EXAMINATION: VITAL SIG NS: Temperature 99.4, pulse 85, respiratory rate 24, blood pressure 142/65. Oxygen saturation 95 per cent on room air. Peak expiratory flow rate 285. GENERAL: This is an obese, middle-aged female who is sitting upright in bed in no acute distress. HEAD, EARS, EYES, NOSE, and THROAT: Pupils equal, ro und, and react to light with the extraocular movements intact. The OROPHARYNX shows some cobblestonin g and postnasal drip in the posterior pharynx. The tympanic membranes are clear bilaterally. NECK: T here is no cervical lymphadenopathy. The jugular venous pressure is estimated at 12 to 13 cm. CARDI AC: Regular rate and rhythm with a distant S1 and S2 and no audible murmurs, rubs, or gallops. LUNGS : Diffuse end-expiratory wheezes are heard throughout both lung canales. There are no rales heard. T here is no dullness to percussion. ABDOMEN: Obese, soft, nontender, nondistended, with normoactive b owel sounds, and no palpable hepatosplenomegaly. EXTREMITIES: There is no cyanosis, clubbing, or emma a. The radial and dorsalis pedis pulses are 2+ and symmetric in both upper and lower extremities barb aterally. SKIN: No rashes or lesions. MUSCULOSKELETAL: No joint effusions, redness. Full range of m otion seen throughout. NEUROLOGIC: Grossly nonfocal. LABORATORY FINDINGS: Review of labs drawn at [facility] shows a normal CBC. Chest x-ray, which I have reviewed and interpreted p ersonally, shows a somewhat poor quality film on the PA projection. There is a suggestion of infiltr ate primarily in the left lower lobe. The lateral projection also suggests an infiltrate in the lowe r lung canales. The left hemidiaphragm is elevated. ASSESSMENT AND PLAN 1. Community-acquired pneumo joseph: At this point the likely pathogens include influenza as well as Mycoplasma or Chlamydia pneumoni ae. Given the degree of coryza that the patient is experiencing, this is most likely either a viral o r atypical infection. We will treat the patient as per ATS guidelines with azithromycin and ceftriax one, and if she responds well she could probably complete a course of azithromycin as an outpatient. We will check an influenza antigen. 2. Obstructive airway disease: The patient does not have a prior history of COPD or asthma. Nevertheless, she is showing airway obstructive disease now with wheezin g and a diminished peak expiratory flow rate. I suspect this is most likely some form of bronchioliti s or bronchitis due to viral respiratory tract infection. We will give her inhaled bronchodilators a s well as some prednisone to diminish her wheezing and shortness of breath. 3. Hypertension: Continu e the patient on her outpatient regimen and follow her blood pressure response. [id number] CIELO PARHAM MD MT: Document: [id number] [place], [place] Name: WALKER BRENNA R HISTORY AND PHYSCIAL LCN: MS3 DSC: [place], [place] Name: MR#: : Admit Date: REBAMELITONYULISA JERONIMODONALDO Drake -[id number] [phone] 04/01/2003 Doctor: CIELO ROMERO MD HISTORY AND PHYSICAL Electronically filed by Suzy herrera 04/06/2003 11:03 AM 00:00 Consultat [facility] UNDEFINED PROVIDER (Physician) [Entered: 00:00 Rigger Up (HIM)] : REFERRING MD: Gary Kendrick MD PULMONARY CONSULTATION INDICATION FOR CONSULTATION: Pneumon ia and shortness of breath. IMPRESSION: 1. Bronchospasm associated with recent viral respiratory tr act infection. 2. Possible latent asthma: The patient has had wheezing in the past associated with a llergic reactions and with exposures to cold air, cats, dust, and smoke. Usually the episodes of whe ezing and shortness of breath are very short-lived. The patient's mother had asthma and was a nonsmo ker. Several of her children have frequent allergy symptoms. 3. No evidence of pneumonia or consoli dation on the chest x-ray of 04/01/02. 4. Elevated left hemidiaphragm without evidence of parenchymal volume loss. 5. Hypertension. 6. The patient may also have a component of vocal cord dysfunction as she describes the sensation at times of her throat closing off. On tonight's examination, the pat savannahnt's wheezing was much more audible over her neck than her chest. 7. Negative screen for influenza A/B. RECOMMENDATIONS/PLAN: 1. Agree with enteric antibiotics. Would change to p.o. antibiotics to complete a 10-day course. 2. Suggest sending home on a prednisone taper such as 40 mg p.o. q.d. for three days, 30 mg for three days, 20 mg for three days, and then off. 4. I would change the patient to albuterol metered dose inhaler with a spacer and discontinue the nebs as the patient has had a lot of side-effects with tachycardia and tremor with higher doses of beta-agonists within the nebulizer. 5. As the patient is likely to have increased bronchial hyperactivity for several weeks to months a fter this episode of back-to- back respiratory tract infections and this recent episode of more sever e bronchospasm, I would suggest sending the patient home on p.r.n. albuterol in the form of a metered dose inhaler (two puffs q.4 h. p.r.n. shortness of breath/wheeze), and would also recommend a contro ller inhaler in the form of Advair 100/50, one inhalation b.i.d. I would continue the p.r.n. albuter ol MDI and the twice daily Advair for three to four months empirically. If the patient remains stabl e with her breathing and is doing much better, one could DC the Advair and observe how she does. HIS TORY AND PHYSICAL EXAMINATION: I have spoken at length with the patient. I have reviewed the umu mckenzie's chart and outside records and reviewed her chest x-ray. I agree with the history and physical pr eviously documented within the chart. RELEVANT LABORATORY DATA: The electrolytes are within normal limits. Influenza A/B screen is negative. Sputum culture is negative. Cholesterol screen was eleva shawna with a total cholesterol of 248, LDL of 158, and HDL of 48. The urinalysis is negative. White b lood cell count 6900. Hemoglobin 12.5. Platelet count 276,000. White blood cell differential is wi thin normal limits. Eosinophils within normal limits at 0.2. IMPRESSIONS/RECOMMENDATIONS: See jj strong. Dictated by Erick Jacques MD, Department of Medicine, Division of Pulmonary Critical Care Sacha strong [id number]_ MD SIM MT: Document: [id number] [place], [place] Name: BRENNA CARR CONSULTATION LCN: MS3 DSC: 2003 [place], [place] Name: MR#: : Consult Date: WALKER BRENNA R [id number] 1940 04/02/2003 Doctor: MD SIM CONSULTATION Electronically filed by Suzy Suárez 04/06/2003 11:03 AM documented in this encounter Plan of Treatment Not on file documented as of this encounter Visit Diagnoses Diagnosis HP, CONSULT- Primary documented in this encounter Care Teams Promotions Executive Producer Relationship Specialty Start Date End Date Gary Kendrick MD XXX RESIGNED XXX [address] [place] [id number] PCP - General 12/15/02 05/21/16 Cynthia Carrasco MD XXX RESIGNED XXX [address] [place] [address] PCP - General Internal Medicine 05/22/16 11/09/19 Cynthia Carrasco MD PCP - Assigned PCP 06/02/16 06/02/18 Ora Roldan DO PCP - General Family Practice 11/10/19 [facility] ([place]) 05/08/18 06/07/18 Cynthia Carrasco MD Assigned PCP 06/02/16 06/09/21 Imer Hernandez MD [address] [place] [address] [place] [address] Assigned Heart and Vascular Provider 02/13/20 08/04/21 documented as of this encounter
--- OUTSIDE RECORDS SUMMARY | 2024-08-15 16:49 | XMS_ITS | Encounter Summary ---
Author Organization [place] Address [address] [place] [address]. [place] [address] Care Team Providers Care Boiler House Supervisor Name Role Phone Cynthia Carrasco MD Primary Care Provider Un available Cynthia [facility]co MD Un[facility] Cynthia Carrasco MD Unavailable Unavaila ble Ora Roldan DO Primary Care Provider [phone] Imer Hernandez MD Unavailable [phone] Reason for Visit * Reason Comments Medication Refill tiZANidine (ZANAFLEX ) 4 MG tablet Encounter Details Date Type Department Care Team (Late st Contact Info) Description 03/19/[address] [address] Cynthia Carrasco MD Medication Refill (tiZANidine (ZANAFLEX) 4 MG tablet) Social History Tobacco Use Types Packs/Day Years Used Date Smoking Tobacco: Former Smokeless Tobacco: Never Alcohol Use Standard Drinks/Week Comments No 0 (1 standard drink = 0.6 oz pur e alcohol) Comments No Sex and Gender Information Value Date Recorded Sex Assigned at Not on file 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 PATSY. ATRIC ASSISTANT * Telephone Encounter - Yari Flores RN - 03/20/2018 9:09 AM PODIATRIC ASSISTANT Routing refill request to provider for review/approval because: Drug not on the [facility] refill protocol Yari Flores RN Message handled by Nurse Triage. ATRIC ASSISTANT * Telephone Encounter - Gertrude Payne - 03/19/2018 1:54 PM CST Requested Prescriptions Pending Prescriptions Disp Refills ??? tiZANidine (ZANAFLEX) 4 MG tablet [Pharmacy Med Name: TIZANIDINE 4MG TABLETS] 90 tablet 0 Sig: TAKE 1 TABLET(4 MG) BY MOUTH THREE TIMES DAILY NEEDED FOR MUSCLE SPASMS There is no refill protocol information for this order Last Written Prescription Date: 02/16/18 Last Fill Quantity: 90, # refills: 0 Last office visit: 02/16/18 with prescribing provider: Cynthia Carrasco MD Future Office Visit: ATRIC ASSISTANT documented in this encounter Plan of Treatment Not on file documented as of this encounter Visit Diagnoses Diagnosis Osteoporotic compression fracture of spine, with routine healing, subsequent encounter Spinal stenosis, unspecified spinal region Acute midline low back pain, with sciatica presence unspecified documented in this encounter Additional Health Concerns Assessment Noted Time PHQ-9 Depression Total Score: 2 01/17/20 18 7:15 AM CDT documented as of this encounter Care Teams Boiler House Supervisor Relationship Specialty Start Date End Date Cynthia Carrasco MD PCP - General Internal Medicine 05/22/16 11/09/19 Cynthia Carrasco MD PCP - Assigned PCP 06/02/16 06/02/18 Ora Roldan DO PCP - General Family Practice 11/10/19 [facility] ([place]) 05/08/18 06/07/18 Cynthia Carrasco MD Assigned PCP 06/02/16 06/09/21 Imer Hernandez MD [address] [place] [address] [place] [address] Assigned Heart and Vascular Provider 02/13/20 08/04/21 documented as of this encounter
--- OUTSIDE RECORDS SUMMARY | 2024-08-15 16:49 | XMS_ITS | Clinical Summary ---
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 Name Role Phone Ora Roldan Primary Care Provider [phone] Allergies Active Allergy Reactions Criticality Noted Date Comments Albuterol Anaphylaxis High 04/19/2003 Diphenhydramine Anaphylaxis High 05/25/2019 Medications hydroxychloroqu ine (PLAQUENIL) 200 MG tablet Take 200 mg by mouth 2 times daily Active cyanocobalamin 500 MCG SUBL sublingual tablet Place 500 mcg under the tongue daily Active Multiple Vitamins-Minera ls (PRESERVISION AREDS PO) Take 1 tablet by mouth 2 times daily Active folic acid (FOLVITE) 1 MG tablet Take 2 mg by mouth daily (takes 2 x 1mg tablet = 2mg dose) Active predniSONE (DELTASONE) 5 MG tablet Take 5 mg by mouth daily . Active amoxicillin (AMOXIL) 500 MG capsule Take 2,000 mg by mouth daily as needed 1 hour prior to dental procedure as needed. Active ferrous sulfate (FE TABS) 325 (65 Fe) MG EC tablet Take 325 mg by mouth daily Active valACYclovir (VALTREX) 500 MG tabletIndicatio ns:Recurrent cold sores TAKE 4 TABLETS AT ONSET OF SYMPTOMS, REPEAT IN 12 HOURS. FOR COLD SORES 16 tablet 9 Active Additional Information Patient taking differently: 500-1,000 mg Oral DAILY PRN, COLD SORES, Informant: Self, Reported on 11/19/2019 Calcium-Phospho jane-Vitamin D (CITRACAL CALCIUM GUMMIES) 250-115-250 MG-MG-UNIT CHEW Take 2 chew tab by mouth every morning Active gabapentin (NEURONTIN) 300 MG capsule Take 300 mg by mouth every morning (IN ADDITION TO EVENING DOSE) Active gabapentin (NEURONTIN) 300 MG capsule Take 900 mg by mouth At Bedtime (3 X 300MG) (IN ADDITION TO MORNING DOSE) Active simvastatin (ZOCOR) 20 MG tablet Take 20 mg by mouth At Bedtime Active vitamin D3 (CHOLECALCIFERO L) 50 mcg (2000 units) tablet Take 2 tablets by mouth daily Active DULoxetine (CYMBALTA) 30 MG capsule Take 60 mg by mouth every morning (2 X 30MG) Active oxyCODONE (ROXICODONE) 5 MG tabletIndicatio ns:Status post reverse total shoulder replacement, left Take 1-2 tablets (5-10 mg) by mouth every 4 hours as needed for severe pain 60 tablet 0 Active senna-docusate (SENOKOT-S/FRANDY COLACE) 8.6-50 MG tabletIndicatio ns:Status post reverse total shoulder replacement, left Take 1-2 tablets by mouth 2 times daily 60 tablet 0 Active methocarbamol (ROBAXIN) 500 MG tabletIndicatio ns:Status post reverse total shoulder replacement, left Take 1 tablet (500 mg) by mouth 4 times daily as needed for muscle spasms 50 tablet 0 Active traMADol (ULTRAM) 50 MG tablet TK 1 T PO BID PRF JOINT PAIN 0 Active diclofenac (VOLTAREN) 1 % topical gel ALBERTO 4 GRAMS EXT AA QID 9 Active diclofenac (VOLTAREN) 1 % topical gel ALBERTO 4 GRAMS EXT AA QID 9 Active cefadroxil (DURICEF) 500 MG capsule cefadroxil 500 mg capsule Active acetaminophen (TYLENOL) 500 MG tablet Take 1,000 mg by mouth 8 Active methotrexate, Anti-Rheumatic, (RHEUMATREX) 2.5 MG tablet methotrexate sodium 2.5 mg tablet Active HYDROcodone-keyana taminophen (NORCO) 5-325 MG tablet Take 1 tablet by mouth every 6 hours as needed for pain 12 tablet 2 Active docusate sodium (COLACE) 100 MG tablet Take 1 tablet (100 mg) by mouth daily 10 tablet 2 Active Active Problems Problem Noted Date Diagnosed Date Status post reverse total shoulder replacement, 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 Morbid obesity 02/21/2017 Gastroesophageal reflux dise ase, esophagitis presence not specified 05/15/2015 Overview (01/03/2020): IMO Regulatory Load DEC 2019 H. pylori infection 05/15/2015 Shoulder joint replacement status 10/22/2012 Anemia due to blood loss, acute 12/14/2011 RA (rheumatoid arthritis) 12/14/2011 Knee joint replacement status 12/12/2011 CARDIOVASCULAR SCREENING; LDL GOAL LESS THAN 130 01/28/2010 Anxiety state 01/22/2007 Overview (12/29/2014): Problem list name updated by automated process. Provider to review Intestinal bypass or anastomosis status 07/25/19 06 Overview (07/24/2005): Surgery May 06 2005 Other symptoms referable to back 07/13/2002 Hypercholesteremia Resolved Problems Problem Noted Date Diagnosed Date Resolved Date Chronic left shoulder pain 12/14/2019 0 05/17/2020 Aftercare following left siria ulder joint replacement surgery 12/14/2019 05/17/2020 Advanced directives, counseling/discussion 04/27/2012 04/23/2018 Aftercare following joint replacement 12/17/2011 02/13/2012 Knee joint replacement by other means 12/17/2011 02/13/2012 Lumbago 10/04/2010 10/16/2010 Knee joint replacement by other means 02/12/2010 03/12/2010 Knee pain 02/12/2010 03/12/2010 Gait disturbance 02/12/2010 03/12/2010 Aftercare following joint replacement 06/02/2009 08/30/2009 Knee joint replacement by other means 06/02/2009 08/30/2009 Immunizations Immunization Administration Dates Next Due Influenza (H1N1) 01/06/2015 Influenza (High Dose) Trival ent,PF (Fluzone) 12/17/2017,11/24/2016,02/10/2015,2011 Influenza (IIV3) PF 12/03/2013, 3,02/27/2012,2010,12/13/2009,02/15/2008,04/01/2001 Pneumo Conj 13-V (2010&after) 05/22/2016 Pneumococcal 23 valent 02/16/2008 Rabies Vaccine (Rabavert) 05/05/2007,,04/14/2007,2007 TD,PF 7+ (Tenivac) 08/19/2006,04/14/1991 TDAP (Adacel,Boostrix) 12/18/2012 Zoster vaccine, live 01/05/2013 Family History Medical History Relation Comments Arthritis Daughter RA Arthritis Mother RA Arthritis Other RA Arthritis Sister 2 Arthritis Sister 3 Relation Status Comments Daughter Alive Father (Age 72) Cardiac,Diabet es Maternal Grandfather Maternal Grandmother Mother (Age 55) [place] Other Alive Paternal Grandfather Paternal Grandmother Sister 1 (Age 45) Pancreatic Can cer, Cardiac Sister 2 Alive Sister 3 Alive Social History Tobacco Use Types Packs/Day Years Used Date Smoking Tobacco: Former Smokeless Tobacco: Never Tobacco Cessation:Counseling Given: No Comments:quit Alcohol Use Standard Drinks/Week Comments No 0 (1 standard drink = 0.6 oz pur e alcohol) PHQ-2 Answer Date Recorded PHQ-2 Score 2 04/10/2018 Adolescent Education Answer Date Record ed Getting School Help Needed Not on file 12/23 Comments No Sex and Gender Information Value Date Recorded Sex Assigned at Not on file 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 Gender Identity Not on file Sexual Orientation Not on file Last Filed Vital Signs Vital Sign Reading Time Taken Comments Blood Pressure 180/85 12/06/2021 3:22 PM CDT Pulse 73 12/06/2021 3:22 PM CDT Temperature 36.7 C (98 F) 12/06/2021 3:22 PM CDT Respiratory Rate 20 12/06/2021 3:22 PM CDT Oxygen Saturation 99% 12/06/2021 3:22 PM CDT Inhaled Oxygen Concentration - - Weight 93.5 kg (206 lb 3.2 oz) 11/22/2019 8:37 A M CDT Height 154.9 cm (5' 1) 11/22/2019 8:37 AM CDT Body Mass Index 38.96 11/22/2019 8:37 AM CDT Plan of Treatment Health Maintenance Due Date Last Done Comments ANNUAL REVIEW OF HM ORDERS 1940 URINE DRUG SCREEN 1942 RSV VACCINE (1 - 1-dose 75+ series) 2017 PRINCESS ASSESSMENT 11/15/2018 05/18/2018, 12/29, 02/26/2017, Additional history exists LIPID 12/17/2018 12/17/2017, 05/02, 09/12/2015, Additional history exists FALL RISK ASSESSMENT 02/16/2019 02/16/2018, 02/21/2017, 09/12/2015, Additional history exists MEDICARE ANNUAL WELLNESS VISIT 06/01/2022 06/01/2021, 05/25/2020, 05/22/2016, Additional history exists COVID-19 Vaccine ( season) 2023 04/28/2021, 11/14/2020, 06/08/2020, Additional history exists PHQ-2 (once per calendar year) 2024 05/18/2018, 01/15/2018, 02/26/2017, Additional history exists ADVANCE CARE PLANNING 11/21/2024 11/22/2019 , 04/30/2018, 04/23/2018, Additional history exists INFLUENZA VACCINE (Season Ended) 2024 01/11/2022, 12/12/2020, 12/20/2019, Additional history exists DTAP/TDAP/TD IMMUNIZATION (3 - Td or Tdap) 08/22/2028 08/22/2018, 12/18/2012, 08/19/2006, Additional history exists DEXA 10/12/2034 10/13/2019, 12/30, 08/24/2010, Additional history exists COLONOSCOPY Discontinued 06/18/2005, 09/08/2004 Pneumococcal Vaccine: 50+ Years Completed 05/22/2016, 02/16/2008 COLORECTAL CANCER SCREENING Discontinued FIT Discontinued 06/11/2018, 06/25/2016 ZOSTER IMMUNIZATION Completed 09/13/2021, 08/09/2021, 01/05/2013 LUNG CANCER SCREENING Discontinued 12/06/2021, 022 CT COLONOGRAPHY Discontinued FLEX SIG Discontinued HPV IMMUNIZATION Aged Out No longer e ligible based on patient's age to complete this topic MENINGITIS IMMUNIZATION Aged Out No l onger eligible based on patient's age to complete this topic sDNA (Cologuard) Discontinued Medical Devices Implanted Type Area Transmission System Operator Device Identifier Shelf Expiration Date Model / Serial / Lot Imp Scr Set Medt Tsrh 3d Dbl Hex [id number] Implanted:Qty: 6 on 04/22/2018 by Vineet Reyes MD at [facility] Metallic Hardware/A nchor Spine Lumbar [employer] [id number] / / LOAD [id number] 21APR2018 Imp Connector Medt Tsrh 3d Sm [id number] Implanted:Qty: 6 on 04/22/2018 by Vineet Reyes MD at [facility] Metallic Hardware/A nchor Spine Lumbar [employer] [id number] / / LOAD 42 08 21APR2018 Imp Scr Medt Tsrh 3dx Og Thin 6.5x45mm Ti [id number] Implanted:Qty: 4 on 04/22/2018 by Vineet Reyes MD at [facility] Metallic Hardware/A nchor Spine Lumbar [employer] [id number] / / [id number] 42 08 21APR2018 Imp Scr Medt Tsrh 3dx Og Thin 6.5x40mm Ti [id number] Implanted:Qty: 2 on 04/22/2018 by Vineet Reyes MD at [facility] Metallic Hardware/A nchor Spine Lumbar [employer] [id number] / / LOAD 42 08 21APR2018 Imp Phan Medt Tsrh Prebent 05.0cm [id number] Implanted:Qty: 2 on 04/22/2018 by Vineet Reyes MD at [facility] Metallic Hardware/A nchor Spine Lumbar [employer] [id number] / / LOAD 42 08 21APR2018 Screw Central Reverse 6.5x30mm Implanted:Qty: 1 on 11/22/2019 by Ronnie Chavez MD at [facility] Metallic Hardware/A nchor N/A: Shoulder [employer] [id number] 10/12/2029 [id number] / / [id number] Imp Scr Locking Biom Rev Shldr 3.5 Hex [id number] Implanted:Qty: 1 on 11/22/2019 by Ronnie Chavez MD at [facility] Metallic Hardware/A nchor N/A: Shoulder [employer] [id number] 10/18/2029 [id number] / / [id number] Imp Scr Locking Biom Rev Shldr 3.5 Hex [id number] Implanted:Qty: 1 on 11/22/2019 by Ronnie Chavez MD at [facility] Metallic Hardware/A nchor N/A: Shoulder [employer] [id number] 10/11/2029 [id number] / / [id number] Imp Baseplate Mini Glenosphere Biom Rev Shldr 25mm [id number] Implanted:Qty: 1 on 11/22/2019 by Ronnie Chavez MD at [facility] Total Joint Component/ Insert N/A: Shoulder [employer] [id number] 09/09/2029 [id number] / / [id number] Imp Scr Locking Biom Rev Shldr 3.5 Hex [id number] Implanted:Qty: 1 on 11/22/2019 by Ronnie Chavez MD at [facility] Total Joint Component/ Insert N/A: Shoulder [employer] [id number] 10/03/2029 [id number] / / [id number] Imp Scr Locking Biom Rev Shldr 3.5 Hex [id number] Implanted:Qty: 1 on 11/22/2019 by Ronnie Chavez MD at [facility] Total Joint Component/ Insert N/A: Shoulder [employer] [id number] 06/29/2029 [id number] / / [id number] Imp Glenosphere Biom Rev Shldr 36mm Std [id number] Implanted:Qty: 1 on 11/22/2019 by Ronnie Chavez MD at [facility] Total Joint Component/ Insert N/A: Shoulder [employer] [id number] 05/27/2029 [id number] / / [id number] Bone Cement Iraan [id number] Implanted:Qty: 1 on 12/12/2011 by Ronnie Chavez MD at [facility] Left: Knee [employer] 04/30/2013 [id number] / / [id number] Bone Cement Iraan [id number] Implanted:Qty: 1 on 12/12/2011 by Ronine Chavez MD at [facility] Left: Knee [employer] 04/30/2013 [id number] / / [id number] Imp Comp Biom Femoral 65mm Lt Interlok [id number] Implanted:Qty: 1 on 12/12/2011 by Ronnie Chavez MD at [facility] Left: Knee [employer] 08/28/2021 [id number] / / [id number] Imp Comp Patella Biom Arcm 31mm Implanted:Qty: 1 on 12/12/2011 by Ronnie Chavez MD at [facility] Left: Knee [employer] 11/28/2016 [id number] / / [id number] Imp Comp Tibial Knee Ascent 71mm [id number] Implanted:Qty: 1 on 12/12/2011 by Ronnie Chavez MD at [facility] Left: Knee [employer] 09/27/2021 [id number] / / [id number] Imp Tibial Bearing Knee 10x71/75 [id number] Implanted:Qty: 1 on 12/12/2011 by Ronnie Chavez MD at [facility] Left: Knee [employer] 11/29/2015 [id number] / / [id number] 6.5mm Central Screw Implanted:Qty: 1 on 10/22/2012 by Ronnie Chavez MD at [facility] Right: Shoulder 09/27/2022 [id number] / / [id number] Fixed Locking Screw Implanted:Qty: 1 on 10/22/2012 by Ronnie Chavez MD at [facility] Right: Shoulder 08/28/2022 [id number] / / [id number] Primary Standard Length Shoulder Stem Implanted:Qty: 1 on 10/22/2012 by Ronnie Chavez MD at [facility] Right: Shoulder 01/28/2022 [id number] / / [id number] Humeral Tray Implanted:Qty: 1 on 10/22/2012 by Ronnie Chavez MD at [facility] Right: Shoulder [id number] / / [id number] Humeral Bearing/ Standard Implanted:Qty: 1 on 10/22/2012 by Ronnie Chavez MD at [facility] Right: Shoulder 04/30/2017 [id number] / / [id number] Glenosphere Implanted:Qty: 1 on 10/22/2012 by Ronnie Chavez MD at [facility] Right: Shoulder 09/27/2022 [id number] / / [id number] Comprehensive Standad Adaptor Implanted:Qty: 1 on 10/22/2012 by Ronnie Chavez MD at [facility] Right: Shoulder 07/28/2022 [id number] / / [id number] Glenosphere Baseplate Subramanian Implanted:Qty: 1 on 10/22/2012 by Ronnie Chavez MD at [facility] Right: Shoulder 07/29/2022 [id number] / / [id number] Fixed Locking Screw Implanted:Qty: 2 on 10/22/2012 by Ronnie Chavez MD at [facility] Right: Shoulder 09/27/2022 [id number] / / [id number] Fixed Locking Screw Implanted:Qty: 1 on 10/22/2012 by Ronnie Chavez MD at [facility] Right: Shoulder 09/27/2022 [id number] / / [id number] Imp Comprehensive Shoulder System Primary Standard Length Shoulder System [id number] Long Implanted:Qty: 1 on 11/22/2019 by Ronnie Chavez MD at [facility] N/A: Shoulder BIOMET 07/29/2021 [id number] / / [id number] Imp Mini Humeral Tray Standard +0mm Taper Offset 40mm Diameter Implanted:Qty: 1 on 11/22/2019 by Ronnie Chaevz MD at [facility] N/A: Shoulder [employer]TEO 06/28/2029 [id number] / / [id number] Imp Polyethylene Bearing Standard 36mm Diameter Implanted:Qty: 1 on 11/22/2019 by Ronnie Chavez MD at [facility] N/A: Shoulder [employer]TEO 05/28/2024 [id number] / / [id number] Procedures Procedure Name Priority Date/Time Associated Diagnosis Comments CT CHEST/ABDOMEN/PELVIS W CONTRAST STAT 12/06/2021 7:45 PM CDT DEXA - HIM SCAN 10/13/2019 12:00 AM CDT FECAL COLORECTAL CANCER SCREEN FIT Routine 06/11/2018 12:00 AM CDT Screen for colon cancer LIPID REFLEX TO DIRECT LDL PANEL Routine 12/17/2017 9:00 AM CDT Hyperlipidemia LDL goal <130 [facility] COLONOSCOPY THRU STOMA, DIAGNOSTIC Routine 06/18/2005 ABSTRACTING RESULTS from Last 3 Months or Most Recently Relevant to Health Maintenance Results * CT Chest/Abdomen/Pelvis w Contrast (12/06/2021 7:45 PM CDT) Anatomical Region Laterality Modality Abdomen/Pelvis, Chest, SUBRA D CT BODY, UMP CT CHEST, UMP CT ABDOMEN PELVIS, RAD CT Computed Tomography 12/06/2021 7:45 PM CDT Impressions 12/06/2021 8:18 PM CDT IMPRESSION: 1. Left anterolateral fourth through 10th rib fractures are more conspicuous than prior exam, with some demonstrating minimally increased displacement or angulation. No associated pneumothorax. 2. No definite new acute fracture. No acute traumatic findings in the chest, abdomen, or pelvis. 3. Unchanged biliary dilatation, possibly post cholecystectomy reservoir effect. However, correlate with bilirubin, and consider MRCP if clinical concern for biliary obstruction. Narrative 12/06/2021 8:18 PM CDT EXAM: CT CHEST/ABDOMEN/PELVIS W CONTRAST LOCATION: [facility] DATE/TIME: 12/06/2021 7:45 PM INDICATION: Chest wall pain after fall. Abdominal bloating sensation. COMPARISON: 11/24/2021 TECHNIQUE: CT scan of the chest, abdomen, and pelvis was performed following injection of IV contrast. Multiplanar reformats were obtained. Dose reduction techniques were used. CONTRAST: 100 mL Isovue 370 FINDINGS: LOWER NECK: Redemonstrated right thyroid lobe nodule measuring 0.8 cm. Left thyroid lobe appears unremarkable. LUNGS AND PLEURA: No focal airspace disease. Scattered subsegmental atelectasis. Few calcified nodules, compatible with old granulomatous disease. No pleural effusion or pneumothorax. MEDIASTINUM/AXILLAE: No lymphadenopathy. No pericardial effusion. CORONARY ARTERY CALCIFICATION: Severe. HEPATOBILIARY: Liver appears normal. Status post cholecystectomy. Unchanged extrahepatic and intrahepatic biliary dilatation. PANCREAS: Mildly prominent main pancreatic duct in the pancreatic head, unchanged, without maulik dilatation. SPLEEN: Normal. ADRENAL GLANDS: Normal. KIDNEYS/BLADDER: Normal. BOWEL: Status post gastric bypass. Mild colonic diverticulosis. No obstruction or inflammatory change. Normal appendix. No evidence of acute appendicitis. LYMPH NODES: No lymphadenopathy. VASCULATURE: Moderate atherosclerotic calcifications. No abdominal aortic aneurysm. PELVIC ORGANS: Unremarkable. MUSCULOSKELETAL: Left anterolateral fourth through 10th rib fractures are more conspicuous than prior exam, with some demonstrating minimally increased displacement or angulation. No definite new acute fracture. Multilevel degenerative changes of the spine. L3-L5 posterior spinal fusion. Redemonstrated chronic compression fractures of T7, T9, L4, and L5. Procedure Note Hebert Reese MD - 12/06/2021 EXAM: CT CHEST/ABDOMEN/PELVIS W CONTRAST LOCATION: [facility] DATE/TIME: 12/06/2021 7:45 PM INDICATION: Chest wall pain after fall. Abdominal bloating sensation. COMPARISON: 11/24/2021 TECHNIQUE: CT scan of the chest, abdomen, and pelvis was performedfollowing injection of IV contrast. Multiplanar reformats were obtained.Dose reduction techniques were used. CONTRAST: 100 mL Isovue 370 FINDINGS: LOWER NECK: Redemonstrated right thyroid lobe nodule measuring 0.8 cm.Left thyroid lobe appears unremarkable. LUNGS AND PLEURA: No focal airspace disease. Scattered subsegmentalatelectasis. Few calcified nodules, compatible with old granulomatousdisease. No pleural effusion or pneumothorax. MEDIASTINUM/AXILLAE: No lymphadenopathy. No pericardial effusion. CORONARY ARTERY CALCIFICATION: Severe. HEPATOBILIARY: Liver appears normal. Status post cholecystectomy.Unchanged extrahepatic and intrahepatic biliary dilatation. PANCREAS: Mildly prominent main pancreatic duct in the pancreatic head,unchanged, without maulik dilatation. SPLEEN: Normal. ADRENAL GLANDS: Normal. KIDNEYS/BLADDER: Normal. BOWEL: Status post gastric bypass. Mild colonic diverticulosis. Noobstruction or inflammatory change. Normal appendix. No evidence of acuteappendicitis. LYMPH NODES: No lymphadenopathy. VASCULATURE: Moderate atherosclerotic calcifications. No abdominal aorticaneurysm. PELVIC ORGANS: Unremarkable. MUSCULOSKELETAL: Left anterolateral fourth through 10th rib fractures aremore conspicuous than prior exam, with some demonstrating minimallyincreased displacement or angulation. No definite new acute fracture.Multilevel degenerative changes of the spine. L3-L5 posterior spinal fusion. Redemonstrated chronic compressionfractures of T7, T9, L4, and L5. IMPRESSION: 1. Left anterolateral fourth through 10th rib fractures are moreconspicuous than prior exam, with some demonstrating minimally increaseddisplacement or angulation. No associated pneumothorax. 2. No definite new acute fracture. No acute traumatic findings in thechest, abdomen, or pelvis. 3. Unchanged biliary dilatation, possibly post cholecystectomy reservoireffect. However, correlate with bilirubin, and consider MRCP if clinicalconcern for biliary obstruction. Ari Douglass DO IM CT ORDERABLES Final Result * DEXA - HIM SCAN (10/13/2019 12:00 AM CDT) Anatomical Region Laterality Modality Other 10/13/2019 us Provider Outside IMG DEXA ORDERABLES Final Resul t * Fecal colorectal cancer screen (FIT) (06/11/2018 12:00 AM CDT) Occult Blood Scn FIT Negative NEG^Negati ve 06/20/2018 9:02 PM CDT [facility] Stool specimen (specimen) 06/11/2018 06/20/2018 2:08 PM CDT us Cynthia Carrasco MD LAB - STOOLS ORDERABLES F inal Result Performing Organization Address City/[facility]/ZIP Co de Phone Number [facility] [address] [place] [address] * Lipid panel reflex to direct LDL Fasting (12/17/2017 9:00 AM CDT) Cholesterol 164 <200 mg/dL 12/18/2017 3:51 PM CDT [facility] Triglycerides 61 <150 mg/dL 12/18/2017 3:51 PM CDT [facility] Comment:Fasting specimen HDL Cholesterol 102 >49 mg/dL 8 3:51 PM CDT [facility] LDL Cholesterol Calculated 50 <100 mg/dL 12/18/2017 3:51 PM CDT [facility] Comment:Desirable: <100 mg/d l Non HDL Cholesterol 62 <130 mg/dL 12/18/2017 3:51 PM CDT [facility] Blood specimen (specimen) 12/17/2017 9:00 AM CDT 12/17/2017 9:06 AM CDT us Cynthia Carrasco MD LAB - BLOOD ORDERABLES Fi nal Result Performing Organization Address City/[facility]/ZIP Co de Phone Number [facility] [address] [place] [address] * COLONOSCOPY (06/18/2005) 06/18/2005 us Gary Kendrick MD PROCEDURES Final Result from Last 3 Months or Most Recently Relevant to Health Maintenance Insurance [facility]ICARE [facility] MEDIC[facility] SUPPLEMENT MEDICARE Advance Directives For more information, please contact: [phone] Documents on File Type Date Recorded Patient Iuss Acoustic Analyst Expl anation Advance Directives and Living Will 11/22/2019 2:32 PM Health Care Directiv e 11/09/2019 * Full Code (Latest Code Status on File) Date Activated Date Inactivated Comments 11/22/2019 1:18 PM 11/23/2019 8:17 PM All basic an d advanced life-sustaining interventions are performed as appropriate Question Answer Comments Code status determined by: Discussion with patie nt/ legal decision maker * DNR/DNI Date Activated Date Inactivated Comments 02/07/2018 3:27 AM 02/08/2018 5:13 PM Question Answer Comments Code status determined by: Discussion with patie nt/legal decision maker * Full Code Date Activated Date Inactivated Comments 10/23/2012 6:10 AM 02/07/2018 3:27 AM * Full Code Date Activated Date Inactivated Comments 10/22/2012 11:19 AM 10/23/2012 6:10 AM * Full Code Date Activated Date Inactivated Comments 12/14/2011 11:14 AM 10/22/2012 11:19 AM Healthcare Agents on File Name Relationship Healthcare Agent Relationship Communication Ricky Covington Daughter Health Care Agent Conchita Sotelo Daughter First Alternate Health Care Agent Care Teams Cellular Equipment Repairer Relationship Specialty Start Date End Date Ora Roldan DO PCP - General Family Practice 11/10/19
--- OUTSIDE RECORDS SUMMARY | 2024-08-15 16:49 | XMS_ITS | Encounter Summary ---
Author Organization [facility] Address [address] [place] [address]. [place] [address] Care Team Providers Care Occupational Therapy Co Director Name Role Phone Gary Kendrick MD Primary Care Provider [phone] Cynthia Carrasco MD Primary Care Provider Un available Cynthia Carrasco MD Unavailable Unavaila ble [facility] Unavailable [phone] Cynthia Carrasco MD Unavailable Unavaila ble Ora Roldan DO Primary Care Provider Imer Hernandez MD Unavailable [phone] Encounter Details Date Type Department Care Team (Late st Contact Info) Description 02/25/2011 MyC Medical Advice [facility] [address] [place] [address] Gary Kendrick MD XXX RESIGNED XXX [address] [place] [address] Restless leg (Primary Dx) Social History Tobacco Use Types Packs/Day Years Used Date Smoking Tobacco: Never Alcohol Use Standard Drinks/Week Comments Yes 0 (1 standard drink = 0.6 oz pur e alcohol) rare Comments No Sex and Gender Information Value Date Recorded Sex Assigned at Not on file 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 Gender Identity Not on file Sexual Orientation Not on file documented as of this encounter Plan of Treatment Not on file documented as of this encounter Visit Diagnoses Diagnosis Restless leg- Primary Restless legs syndrome (RLS) documented in this encounter Care Teams Occupational Therapy Co Director Relationship Specialty Start Date End Date Gary Kendrick MD XXX RESIGNED XXX [address] [place] [phone] PCP - General 12/15/02 05/21/16 Cynthia Carrasco MD XXX RESIGNED XXX [address] [facility] [facility] [address] [place] [address] PCP - General Internal Medicine 05/22/16 11/09/19 Cynthia Carrasco MD PCP - Assigned PCP 06/02/16 06/02/18 Ora Roldan DO PCP - General Family Practice 11/10/19 [facility] 05/08/18 06/07/18 Cynthia Carrasco MD Assigned PCP 06/02/16 06/09/21 Imer Hernandez MD [address] [id number] Assigned Heart and Vascular Provider 02/13/20 08/04/21 documented as of this encounter
--- OUTSIDE RECORDS SUMMARY | 2024-08-15 16:49 | XMS_ITS | Encounter Summary ---
Author Organization [facility] Address [address] [place] [address]. 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 No / Unsure 12/06/2021 3:19 PM CDT documented as of this encounter Plan of Treatment Not on file documented as of this encounter Visit Diagnoses Not on filedocumented in this encounter Additional Health Concerns Assessment Noted Time PHQ-9 Depression Total Score: 13 05/18/2 019 3:02 PM SENIOR ACCOUNT MANAGER documented as of this encounter Care Teams Therapist Asst Relationship Specialty Start Date End Date Ora Roldan DO PCP - General Family Practice 11/10/19 documented as of this encounter
--- OUTSIDE RECORDS SUMMARY | 2024-08-15 16:51 | XMS_ITS | Encounter Summary ---
Author Organization [facility] Address [address] [place] [address]. [place] [address] Care Team Providers Care Automatic Thread Winder Name Role Phone Gary Kendrick MD Primary Care Provider [phone] Cynthia Carrasco MD Primary Care Provider Un available Cynthia Carrasco MD Unavailable Unavaila ble [facility] Unavailable Cynthia Carrasco MD Unavailable Unavaila ble Ora Roldan DO Primary Care Provider Imer Hernandez MD Unavailable [phone] Encounter Details Date Type Department Care Team (Late st Contact Info) Description 12/02/2014 MyC Medical Advice [facility] [address] [facility] [address] [place] [address] Gary Kendrick MD XXX RESIGNED XXX [address] [place] [address] Social History Tobacco Use Types Packs/Day Years Used Date Smoking Tobacco: Never Smokeless Tobacco: Never Alcohol Use Standard Drinks/Week Comments Yes 0 (1 standard drink = 0.6 oz pur e alcohol) rare Comments No Sex and Gender Information Value Date Recorded Sex Assigned at Not on file 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 Gender Identity Not on file Sexual Orientation Not on file documented as of this encounter Plan of Treatment Not on file documented as of this encounter Visit Diagnoses Not on filedocumented in this encounter Care Teams Automatic Thread Winder Relationship Specialty Start Date End Date Gary Kendrick MD XXX RESIGNED XXX [address] [place] [phone] PCP - General 12/15/02 05/21/16 Cynthia Carrasco MD XXX RESIGNED XXX [address] [place] [address] PCP - General Internal Medicine 05/22/16 11/09/19 Cynthia Carrasco MD PCP - Assigned PCP 06/02/16 06/02/18 Ora Roldan DO PCP - General Family Practice 11/10/19 [facility] ([place] 05/08/18 06/07/18 Cynthia Carrasco MD Assigned PCP 06/02/16 06/09/21 Imer Hernandez MD [address] [address] Assigned Heart and Vascular Provider 02/13/20 08/04/21 documented as of this encounter
--- OUTSIDE RECORDS SUMMARY | 2024-08-15 16:51 | XMS_ITS | Encounter Summary ---
Author Organization [facility] Address [address] [place] [address] Care Team Providers Care Pad Machine Feeder Name Role Phone Gary Kendrick MD Primary Care Provider [phone] Cynthia Carrasco MD Primary Care Provider Un available Cynthia Carrasco MD Unavailable Unavaila ble [facility] Unavailable Cynthia Carrasco MD Unavailable Unavaila ble Ora Roldan DO Primary Care Provider Imer Hernandez MD Unavailable [phone] Reason for Visit * Reason Onset Date Comments MyChart Communication 11/09/2014 's condition Encounter Details Date Type Department Care Team (Late st Contact Info) Description 11/09/2014 MyC Medical Advice [place] [facility] [address] [place] [address] Gary Kendrick MD XXX RESIGNED XXX [address] [place] [address] MyChart Communication ('s condition) Social History Tobacco Use Types Packs/Day Years Used Date Smoking Tobacco: Never Smokeless Tobacco: Never Alcohol Use Standard Drinks/Week Comments Yes 0 (1 standard drink = 0.6 oz pur e alcohol) rare Comments No Sex and Gender Information Value Date Recorded Sex Assigned at Not on file 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 Gender Identity Not on file Sexual Orientation Not on file documented as of this encounter Plan of Treatment Not on file documented as of this encounter Visit Diagnoses Not on filedocumented in this encounter Care Teams Pad Machine Feeder Relationship Specialty Start Date End Date Gary Kendrick MD XXX RESIGNED XXX [address] [place] [phone] PCP - General 12/15/02 05/21/16 Cynthia Carrasco MD XXX RESIGNED XXX [address] [place] [address] PCP - General Internal Medicine 05/22/16 11/09/19 Cynthia Carrasco MD PCP - Assigned PCP 06/02/16 06/02/18 Ora Roldan DO PCP - General Family Practice 11/10/19 [facility] ([place] 05/08/18 06/07/18 Cynthia Carrasco MD Assigned PCP 06/02/16 06/09/21 Imer Hernandez MD [address] [address] Assigned Heart and Vascular Provider 02/13/20 08/04/21 documented as of this encounter
--- OUTSIDE RECORDS SUMMARY | 2024-08-15 16:51 | XMS_ITS | Data Portability ---
Author Organization [place] [facility], Main Office Address [address] [place] [address] Assessment Encounter Date Assessment Date Assessment LastModified by Organization Details LastModified Time 12/29/2017 12/29/2017 History of nonmelanoma skin cancers several torso arms no evidence recurrence. general skin evaluation revealing multiple seborrheic keratosis solar lentigo's. Actinic keratosis x6 to on the face 2 on each extensor arm. API-69 Not available 12/29/2017 11:33:02 12/12/2018 12/12/2018 1. Neoplasm uncertain etiology left posterior superior deltoid. Discussed potential basal carcinoma versus actinic keratosis. Discussed the biopsy followed by an excision. Versus a deeper wider shave the normal in hopes of curing if this is a basal cell. She understands if this is not a basal cell to be a larger scar than normal she accepts this risks. Anesthetized 1% lidocaine with epinephrine. Tangential shave excision performed abutting subcutis final size 1.3 cm. 2. Actinic keratosis left trapezius and 6 on the face. Treated with cryotherapy. Wound care instructions given total 7. 3. Seborrheic keratosis. Offered reassurance. 4. Multiple benign nevi. Discussed the ugly duckling concept. 5. General skin cancer screening discussed sunscreens protective clothing signs symptoms basal cell squamous cell melanoma. Follow-up recommended annually We reviewed the potential use of Efudex in the classic course to treat the base of margins are positive. She may also want to start Efudex for the actinic keratosis were identified on the arms once weekly she will consider this API-69 Not available 12/13/2018 20:08:22 09/23/2020 09/23/2020 1. Actinic keratosis on the arms face total of 1 lesions were treated with cryotherapy wound care instructions given. restart off label once weekly efudex 2. Seborrheic keratosis offered reassurance. 3. Generalized skin cancer screening with solar lentigines offered reassurance. Recommend annual follow-up. Not available 11/13/2020 19:47:02 12/08/2021 12/08/2021 1. Actinic keratosis x4 on the arms treated with cryotherapy discussed premalignant nature recommend annual follow-up wound care instructions given 2. Seborrheic keratosis left abdomen offered reassurance 3. Actinic purpura offered reassurance 4. Localized skin cancer screening. Discussed signs symptoms of basal cell squamous cell. 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 Overall very well-healed She is aware of a few rough scaly areas on her face gradual development over the months. Do not hurt do not bleed. Prior cryotherapy in the past not to the same sites but in local regions Past medical history overall unchanged over the last year she has had some orthopedic surgeries otherwise no changes. History of actinic keratosis, squamous cell carcinoma on the hand. No history of melanoma new paragraph social history retired nurse has children. Does not smoke. Modest Joey sun exposure in her younger years. Family history nonmelanoma skin cancer and some members. Review of systems overall energy normal weight stable. Decreased mobility noted no issues with bleeding or clotting. Exam alert pleasant no acute stress face nose lips or mucosa eyelids lower conjunctive neck upper chest back arms Willam well-healed scar right dorsal hand no nodularity white hypopigmented suggestive of an E D&C site. Hyperkeratotic erythematous scaly macule right pretibial leg overlying hemosiderin deposition numerous spider veins noted. Faint erythema scaly macules x 3 on the face. No indurated lesions all grade 1 on the left and right cheek and a couple on the forehead. Yellow-brown lentigines on the face and the back few brown scaly stuck lesions on the back. Assessment 1 multiple actinic keratosis 4 on the face 1 on the right pretibial legs and leg hyperkeratotic. Treated all 5 with cryotherapy wound care instructions given recommend annual follow-up sooner if nothing does not heal. 2. History of squamous cell carcinoma right dorsal hand no signs of recurrence discussed increased future risk recommend annual follow-up 3 solar lentigines offered reassurance Reports to be keratosis offered reassurance new paragraph #5 localized skin cancer screening waist up including pretibial legs. Follow-up in 1 year sooner if things do not resolve Not available 07/21/2023 20:10:39 Plan of Treatment Reminders Order Date Submit Date Provider Last Modified By Organization Details Last Modified Time Details Appointments None recorded. Lab pathology , skin [facility], [address] [place] [address], [address], [place], [address], 9 16:24:41 Referral None recorded. Procedures None recorded. Surgeries None recorded. Imaging None recorded. Medication Orders Efudex 5 % topical cream [id number], [address], [place], [place], [phone], 1 12:05:02 Patient Targets Encounter Date Encounter Id Patient Goals Patient Target Last Modified By Organization Details Last Modified Time Goals are to identify precancers and skin cancers at the earliest point of intervention and minimize future impact.She also needs a refill of her medication which is compounded at the [facility] for pruritus. She is going to contact us with the name I suspect combination of amitriptyline and ketamine. We will happily call in a refill once we obtain the proper medication. API-69 Not available 12/29/2017 11:33:36 Patient Instructions Encounter Date Encounter Id Patient Instructions Last Modified By Organization Details Last Modified Time 12/29/2017 [id number] seborrheic keratosis: care instructions Not available 03/31/2018 20:02:34 actinic keratosis: care instructions Not available 03/31/2018 20:02:34 Please wear your sunscreens. Please apply Vaseline petroleum jelly twice daily to the areas were treated with freezing today for a week. Call us if there is ever any concern. We will see in a year ago get a reminder in about 11 months to schedule an appointment API-69 Not available 12/29/2017 11:33:55 Please apply vaseline to any areas we treated today twice daily for 1 week. Call with any concerns and we will see you in 1 year. Anytime sooner if you have any concerns. Not available 12/29/2017 21:41:10 09/23/2020 [id number] actinic keratosis: care instructions Not available 09/23/2020 12:04:22 12/08/2021 [id number] actinic keratosis: care instructions Not available 12/09/2021 22:50:03 07/21/2023 [id number] actinic keratosis: care instructions Not available 07/21/2023 20:09:49 Reason for Referral None Reported. Results Created Date Observation Date Name Description Value Unit Range Abnormal Flag Note LastModifiedBy Organization Detail LastModifiedTime Result Notes None recorded. 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 Medical Equipment None Reported. Allergies Allergen ID Allergen Name Allergen Category Reaction Reaction Severity Criticality Documentation Date Start Date Code Code System Note Provider Name and Address Organization Details Recorded Time 148 diphenhyd ramine hydrochlo ride medicatio n anaphylax is moderate Not available 12/29/2017 1362 RxNorm Albut rosio nyla badillo [facility] 8 11:06:08 Medications Name Sig Start Date Stop Date Status Note LastModified by Organization Details LastModified Time atorvastati n 40 mg tablet active Not Available Not Available Not Available methocarbam ol 500 mg tablet TAKE 1 TABLET BY MOUTH THREE TIMES DAILY active Not Available Not Available No t Available azithromyci n 250 mg tablet TAKE 2 TABLETS BY MOUTH FOR 1 DAY THEN TAKE 1 TABLET BY MOUTH DAILY FOR 4 DAYS active Not Available Not Available No t Available tizanidine 4 mg tablet active Not Available Not Available Not Available hydrocodone 5 mg-acetamin ophen 325 mg tablet TAKE 1 TO 2 TABLETS BY MOUTH EVERY 6 HOURS NEEDED FOR PAIN active Not Available Not Available No t Available prednisone 20 mg tablet active Not Available Not Available Not Available fluorouraci l 5 % topical cream TOPICALLY APPLY TO ARMS OVERNIGHT ONCE WEEKLY active Not Available Not Available No t Available sertraline 100 mg tablet TAKE 1 TABLET BY MOUTH EVERY MORNING active Not Available Not Available No t Available prednisone 5 mg tablet TAKE 3 TABLETS BY MOUTH DAILY FOR 5 DAYS THEN TAKE 2 TABLETS BY MOUTH DAILY FOR 5 DAYS THEN TAKE 1 TABLET BY MOUTH DAILY FOR 5 DAYS active Not Available Not Available No t Available gabapentin 250 mg/5 mL oral solution TAKE 6ML BY MOUTH TWICE DAILY AND 12ML AT NIGHT active Not Available Not Available No t Available acetaminoph en 300 mg-codeine 30 mg tablet active Not Available Not Available Not Available ciprofloxac in 250 mg tablet 12/12 completed Not Available Not Available Not Available valacyclovi r 500 mg tablet TK 4 TS AT THE BEGINNING OF THE ONSET AND REPEAT IN TWELVE HOURS WITH 4 TABLETS. active Not Available Not Available No t Available methotrexat e sodium 25 mg/mL injection solution active Not Available Not Available Not Available sulfamethox azole 800 mg-trimetho prim 160 mg tablet 12/12 completed Not Available Not Available Not Available leflunomide 20 mg tablet TAKE 1 TABLET BY MOUTH EVERY DAY active Not Available Not Available No t Available tramadol 50 mg tablet TAKE 1 TABLET BY MOUTH 2 TO 3 TIMES DAILY NEEDED FOR JOINT PAIN active Not Available Not Available No t Available amoxicillin 500 mg tablet TAKE FOUR TS PO 1 HOUR B DAPP active Not Available Not Available No t Available simvastatin 40 mg tablet active Not Available Not Available Not Available cefadroxil 500 mg capsule active Not Available Not Available Not Available metoclopram keron 5 mg tablet TAKE 1 TABLET BY MOUTH FOUR TIMES DAILY NEEDED FORNAUSEA AND VOMITING active Not Available Not Available No t Available methotrexat e sodium 2.5 mg tablet active Not Available Not Available Not Available prednisone 1 mg tablet TAKE 4 TABLETS BY MOUTH EVERY DAY OR DIRECTED active Not Available Not Available No t Available benzonatate 100 mg capsule active Not Available Not Available Not Available cephalexin 500 mg capsule active Not Available Not Available Not Available pantoprazol e 40 mg tablet,michael yed release active Not Available Not Available Not Available simvastatin 20 mg tablet active Not Available Not Available Not Available docusate sodium 100 mg capsule TAKE 1 CAPSULE BY MOUTH DAILY. active Not Available Not Available No t Available gabapentin 300 mg capsule TAKE 1 CAPSULE BY MOUTH EVERY MORNING THEN TAKE 3 CAPSULES BY MOUTH EVERY NIGHT 2 HOURS BEFORE BEDTIME active Not Available Not Available No t Available omeprazole 20 mg capsule,del ayed release active Not Available Not Available Not Available folic acid 1 mg tablet TAKE 2 TABLETS BY MOUTH EVERY DAY active Not Available Not Available No t Available mupirocin 2 % topical ointment APPLY TOPICALLY TO AFFECTED AREAS TWICE DAILY FOR 5 DAYS. APPLY TO THE BILATERAL NOSTRILS. USE FOR MRSA DECOLONIZ ATION. active Not Available Not Available No t Available gabapentin 100 mg capsule TAKE UP TO 3 CAPSULES BY MOUTH EVERY DAY NEEDED FOR BREAKTHRO UGH SYMPTOMS active Not Available Not Available No t Available hydroxychlo roquine 200 mg tablet active Not Available Not Available No t Available estradiol 0.01% (0.1 mg/gram) vaginal cream INSERT 1 GRAM INTO THE VAGINA USING THE APPLICATO R NIGHTLY DIRECTED active Not Available Not Available No t Available hydroxyzine HCl 10 mg tablet TK 1 T PO Q 4 TO 6 H PRN active Not Available Not Available No t Available sertraline 50 mg tablet active Not Available Not Available Not Available oxycodone 5 mg tablet TK 1 T PO IN THE EVENING AND 1 AT BEDTIME active Not Available Not Available No t Available bupropion HCl XL 150 mg 24 hr tablet, extended release active Not Available Not Available Not Available duloxetine 30 mg capsule,del ayed release active Not Available Not Available Not Available Paxlovid 300 mg (150 mg x 2)-100 mg tablets in a dose pack TK 2 NIRMATREL VIR TS AND 1 RITONAVIR T TOGETHER PO BID FOR 5 DAYS active Not Available Not Available No t Available Vitals Date Recorded Body weight Systolic blood pressure Diastolic blood pressure Provider Name and Address Organization Details Last Updated DateTime 12/29/2017 79976.4 g 145 mm[Hg] 85 mm[Hg] nyla badillo [place] [facility] 12/29/2017 11:04:45 Social History Question Answer Notes LastModified by Organizat ion Details LastModified Time Tobacco Smoking Status Never Smoker Not Available [facility] 02/01/2020 03:34:37 What Is Your Relationship Status? Unknown [id number] Information not available 02/01/2020 Sun Exposure Occasional Information not available 12/12/2018 Do You Use Sunscreen Routinely? No [id number] Information not available 02/01/2020 Tanning Bed Exposure No Information not available 12/12/2018 Sex: Unknown Functional Status None recorded. Mental Status None recorded. Family History Relationship Description Onset Age of this Age Resolved Age Notes LastModified by Organization Details LastModified Time Son Diabetes mellitus 50 Not available 2018 13:22:53 Mother Asthma 30 Not available 0 12/12/2018 13:22:53 Mother Arthritis 35 Not availabl e 12/12/2018 13:22:53 Father Diabetes mellitus 50 Not available 2018 13:22:53 Unspecified Relation Arthritis 15 Not available 2018 13:22:53 Sister Arthritis 50 Not availabl e 12/12/2018 13:22:53 Daughter Environmenta l allergy 25 Not available 2018 13:22:53 Daughter Arthritis 30 Not availa ble 12/12/2018 13:22:53 Medical History Condition Response Diabetes N Bleeding Disorder N Squamous Cell Carcinoma N Arthritis N Blood Clot N AIDS/HIV N Tuberculosis N Cancer N Melanoma N Stroke N Thyroid Problems N Asthma N Pacemaker N Anemia N Basal Cell Carcinoma N Skin Cancer N Hepatitis N Liver Disease N Heart Disease N Pulmonary Embolism N Hypertension N Seasonal Allergies N Kidney Disease N Gynecological HistoryNo gynecological history recorded. Obstetrics History GPAL:G 0 P 0 0 0 0 Past Encounters Encounter ID Performer Location Encounter Start Date Encounter Closed Date Diagnosis/Indication Diagnosis SNOMED-CT Code Diagnosis ICD10 Code Diagnosis Note [id number] Yumiko Griffith MD Main Office [address],[place] [address] 12/29/2017 10:58:26 01/17/2018 19:13:46 Actinic keratosis 613000439 L57.0 Senile hyperkeratosis 39 0279593 L82.1 Solar lentigo 78013140 L 81.4 Senile angioma 3893181 I 78.1 History of malignant neoplasm of skin 433180497 Z85.828 History of actinic keratosis 3716790414 104 Z87.2 [id number] Yumiko Griffith MD Main Office [address] [employer] [address] 12/12/2018 13:18:42 12/19/2018 03:52:48 Neoplasm of uncertain behavior of skin 19390171 D48.5 Actinic keratosis 815740 007 L57.0 Senile hyperkeratosis 39 8416738 L82.1 Screening for malignant neoplasm of skin 523592896 Z12.83 [id number] Yumiko Griffith MD Main Office [address] [employer] [address] 09/23/2020 11:39:09 11/13/2020 19:50:01 Actinic keratosis 915776012 L57.0 Seborrheic keratosis of scalp 857775534 L82.1 Solar lentigo 87247512 L 81.4 Screening for malignant neoplasm of skin 251272058 Z12.83 [id number] Yumiko Griffith MD Main Office [address] [place] [address] 12/08/2021 13:25:13 12/09/2021 22:50:48 Actinic keratosis 256413826 L57.0 Seborrheic keratosis of scalp 468639967 L82.1 Senile purpura 65040395 D69.2 Screening for malignant neoplasm of skin 434236686 Z12.83 [id number] Yumiko Griffith MD Main Office [address] [place] [address] 07/21/2023 13:10:45 07/21/2023 20:11:10 Actinic keratosis 496852566 L57.0 Seborrheic keratosis of scalp 782667787 L82.1 History of squamous cell carcinoma of skin 132724107 Z85.828 Senile purpura 18646158 D69.2 History of malignant neoplasm of skin 475548708 Z85.828 Health Concerns Section Related Observation LastModified by Organization Detai ls LastModified Time None Recorded Concern Status LastModified by Organization Details LastModified Time None Recorded Advance Directives Directive None Recorded Payers Encounter Date Sequence Insurance Name Policy Number Policy Forbes Covered Member ID Forbes Member ID Guarantor Name 12/29/2017 1 [place] [employer] Brenna R Visnovec [id number] Brenna Lopezh Visnovec 12/29/2017 2 [place] [id number] Brenna R Visnovec [id number] Brenna Valarie Visnovec 12/12/2018 1 [place] [employer] Brenna R Visnovec [id number] Brenna Valarie Visnovec 12/12/2018 2 [place] [id number] Brenna R Visnovec [id number] Brenna Valraie Visnovec 09/23/2020 1 [place] [employer] Brenna R Visnovec [id number] Brenna Valarie Visnovec 09/23/2020 2 [place] [id number] Brenna R Visnovec [id number] Brenna Valarie Visnovec 12/08/2021 1 [place] [employer] Brenna R Visnovec [id number] Brenna Valarie Visnovec 12/08/2021 2 [place] [id number] Brenna R Visnovec [id number] Brenna Valarie Visnovec 07/21/2023 1 [place] [id number] Brenna Visnovec [id number] Brenna Valarie Visnovec Notes Date Note Type Note Provider Name and Address Organization Details Recorded Time 8 text/html 77-year-old white female presents today for general skin evaluation. She has had several nonmelanoma skin cancers on the upper chest and on the arms in the past. She has no history of melanoma. She notes some roughened areas on her arm and her lip. Nothing that bleed scab nor will not heal. She is seen annually for cryotherapy. She has had excisions and electrodesiccation and curettage in the past. She notes a roughened area on the front anterior scalp line present for years asymptomatic does not bleed no scabbing no prior treatments. Social history marked a modest sun exposure over her years. Retired does not smoke. Yumiko Griffith MD [address] [place], [address], [facility] 03/31/2018 20:02:36 9 text/html Presents today for general skin evaluation. She is unaware of the red area on the left upper trapezius and the left superior posterior deltoid. Duration uncertain symptoms none. No prior treatments. She has had actinic keratosis in the past. She has had some issues in the interim. She is had some musculoskeletal issues and a fusion in her lower back. This happened after a trip and a fall. She has no issues except that balance is not as good as it used to be. But she has no pain anymore in the back. Otherwise past medical history is unchanged. Social history unchanged family history unchanged. Review of systems: Overall feels good health. Weight stable. No issues with healing. Back pain gone. Balance becomes more of an issue. Has upcoming knee surgery due to pain. MD Bandar Pinto,[facility] [place], [address], [facility] 12/19/2018 03:55:12 1 text/html 80-year-old female returns today for annual visit with a history of actinic keratosis. Section been almost 2 years since we have seen her. She notes a few rough scaly areas. But nothing that bleeds scabs no will not heal. She does note a few brown lesions that are slightly pruritic and tender over the last month. Past medical she has had 2 surgeries, and left shoulder surgery since we saw her last may be the other. Past medical history is as above. Social history: Unchanged. Changes related to the coronavirus. Family history: Unchanged. Review of systems feels in good health with decreased mobility and recent pain and tenderness in the left shoulder. His most recent shoulder surgery. But that surgery was year ago. She did feel a pop and bruising over the last week. Some moderate pain persist no warmth Yumiko Griffith MD [address],[facility] [place], [address], [facility] 11/13/2020 19:47:46 2 text/html 81-year-old presents today for several separate concerns. Follow-up of her previous actinic keratosis. She notes no lesions that specifically bleed scab no will not heal. She does note a rough scaly area on the left abdomen that is gradually developed. Does not hurt does not bleed no prior treatments. She is comfortable with a localized skin cancer screening. Is accompanied by her daughter throughout the entire visit. Her past medical history is been complicated by issues with balance and a recent fall and for fractured ribs otherwise unchanged. No other major issues in the last year or so. Social history retired unchanged. Family history: Unchanged daughters with skin issues including actinic keratosis. Yumiko Griffith MD [facility], [place], [address], [facility] 12/09/2021 22:50:27 OBGyn Episode No OBEpisode recorded.
--- OUTSIDE RECORDS SUMMARY | 2024-08-15 16:51 | XMS_ITS | Encounter Summary ---
Author Organization [place] Address [address] [place] [address]. [place] [address] Care Team Providers Care Elementary Education Tutor Name Role Phone Gary Kendrick MD Primary Care Provider [phone] Cynthia Carrasco MD Primary Care Provider Un available Cynthia Carrasco MD Unavailable Unavaila ble [facility] Unavailable Cynthia Carrasco MD Unavailable Unavaila ble Ora Roldan DO Primary Care Provider Imer Hernandez MD Unavailable +- [phone] Encounter Details Date Type Department Care Team (Late st Contact Info) Description 07/13/2015 [facility] Medical Advice [address] [place] [phone] Bianca Aguirre, [facility] Social History Tobacco Use Types Packs/Day Years Used Date Smoking Tobacco: Former Smokeless Tobacco: Never Alcohol Use Standard Drinks/Week Comments No 0 (1 standard drink = 0.6 oz pur e alcohol) Comments No Sex and Gender Information Value Date Recorded Sex Assigned at Not on file Legal Sex Female 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 Gender Identity Not on file Sexual Orientation Not on file documented as of this encounter Plan of Treatment Not on file documented as of this encounter Visit Diagnoses Not on filedocumented in this encounter Care Teams Elementary Education Tutor Relationship Specialty Start Date End Date Gary Kendrick MD XXX RESIGNED XXX [address] [place] [phone] PCP - General 12/15/02 05/21/16 Cynthia Carrasco MD XXX RESIGNED XXX [address] [place] [address] PCP - General Internal Medicine 05/22/16 11/09/19 Cynthia Carrasco MD PCP - Assigned PCP 06/02/16 06/02/18 Ora Roldan DO PCP - General Family Practice 11/10/19 [facility] ([place]) 05/08/18 06/07/18 Cynthia Carrasco MD Assigned PCP 06/02/16 06/09/21 Imer Hernandez MD [address] [address] Assigned Heart and Vascular Provider 02/13/20 08/04/21 documented as of this encounter
== END 2024-08-13 15:55 | disposition home or self-care (01) ==
PROVIDERS: Emergency Provider Family Medicine; PCP Family Medicine
DX: R10.33 Periumbilical pain (principal); K59.00 Constipation, unspecified
CPT/HCPCS: 36415; 74177; 80053; 81001; 82248; 82565; 83605; 83690; 85025; 86140; 94761; 96374; 96375; 99284; 99285; A9270; J1171; J2405; J3010; J7050; Q9967